=== PATIENT | female | born 1940 | race Caucasian/White ===

== ENCOUNTER 2018-03-23 19:41 | Emergency (ER) | payer MEDICARE, OTHER, SELFPAY ==
[2018-03-23 19:47] VITALS: BP 135/86; PULSE 78; RESP 16; TEMP 36.4; O2SAT 98
--- NOTE | 2018-03-23 22:44 | ED_ITS ---
HPI - Skin/Abscess/Foreign Bdy <SHAN Mercer - Last Filed: 03/23/18 22:45> General Chief complaint: Skin/Abscess/Foreign Body Stated complaint: CUT RT INDEX FINGER Time Seen by Provider: 03/23/18 21:13 Source: patient Mode of arrival: ambulatory Limitations: no limitations History of Present Illness HPI narrative: Patient cut the back of her right index finger on a glass jar. States full mobility. States tetanus updated 3 years ago. Denies numbness or tingling. Has not done anything to the laceration since. States that happened about 30 min prior to arrival to the emergency department. Related Data Allergies Allergy/AdvReac Type Severity Reaction Status Date / Time codeine [CODEINE] Allergy Unknown Unverified 11/30/17 12:32 Iodinated Contrast- Oral and Allergy Unknown Unverified 11/30/17 12:32 IV Dye [IODINATED CONTRAST MEDIA - IV DYE] Penicillins [PENICILLINS] Allergy Unknown Unverified 11/30/17 12:32 Review of Systems <SHAN Mercer - Last Filed: 03/23/18 22:45> Review of Systems GENERAL: Denies chills, fatigue, malaise, fever, sweats. HEENT: Denies sinus pain, ear pain, sore throat, difficulty swallowing, dizziness. RESPIRATORY: Denies dyspnea, cough, wheezing, hemoptysis, sputum. CARDIOVASCULAR: Denies chest pain, palpitations, orthopnea, edema, GASTROINTESTINAL: Denies nausea, vomiting, abdominal pain, diarrhea, constipation, melena. : Denies dysuria, frequency, incontinence, hematuria, urinary retention. MUSCULOSKELETAL: See HPI SKIN: See HPI NEUROLOGIC: Denies weakness, headache, numbness, change in speech, confusion, seizures, incoordination. PSYCHIATRIC: No concerning psychosocial issues. 12 point review of systems is negative except for those stated above Exam <SHAN Mercer - Last Filed: 03/23/18 22:45> Narrative Exam Narrative: GENERAL: This is a well-nourished, well-developed patient, in mild distress. HEAD: Atraumatic. Normocephalic. No temporal or scalp tenderness. EYES: Pupils equal round and reactive. Extraocular motions intact. No scleral icterus. No injection or drainage. ENT: Nose without bleeding, purulent drainage or septal hematoma. Throat without erythema, tonsillar hypertrophy or exudate. Uvula midline. Airway patent. NECK: Trachea midline. No JVD or lymphadenopathy. Supple, nontender, no meningeal signs. CARDIOVASCULAR: Regular rate and rhythm without murmurs, gallops, or rubs. RESPIRATORY: Clear to auscultation. Breath sounds equal bilaterally. No wheezes , rales, or rhonchi. GASTROINTESTINAL: Abdomen soft, non-tender, nondistended. No hepato-splenomegaly , or palpable masses. No guarding. EXTREMITIES: Full range of motion noted right index finger. Capillary refill less than 2 sec right index finger. BACK: Nontender without deformity or crepitance. No flank tenderness. NEURO: AOx3. SKIN: 2 cm linear laceration on dorsal aspect of right index finger. Laceration is linear other than small flap on distal end. No muscle or tendon involvement observed. Bleeding slowly. No obvious foreign bodies. Initial Vital Signs Initial Vital Signs: Vital Signs Temperature 97.6 F 03/23/18 19:47 Pulse Rate 78 03/23/18 19:47 Respiratory Rate 16 03/23/18 19:47 Blood Pressure 135/86 H 03/23/18 19:47 Pulse Oximetry 98 03/23/18 19:47 <Azucena Mcallister DO - Last Filed: 03/24/18 04:24> Initial Vital Signs Initial Vital Signs: Vital Signs Temperature 97.6 F 03/23/18 19:47 Pulse Rate 78 03/23/18 19:47 Respiratory Rate 16 03/23/18 19:47 Blood Pressure 135/86 H 03/23/18 19:47 Pulse Oximetry 98 03/23/18 19:47 Procedures <SHAN Mercer - Last Filed: 03/23/18 22:45> Laceration Repair Laceration 1: Site: hand Side (If applicable): right Size (cm): 2 Description: linear and flap Depth: simple, single layer Local Anesthetic: lidocaine 1% (Digital block right index finger) Amount of anesthesia used (mL): 3 Pre-repair: wound explored, irrigated extensively and deep structures intact Skin layer closed with: nylon Size (cm): 6-0 Number of sutures: 5 Technique: simple, interrupted Course <SHAN Mercer - Last Filed: 03/23/18 22:45> Vital Signs - 8 hr 03/23/18 23:08 Temperature 96.7 F L Pulse Rate 57 L Blood Pressure [Left Arm] 132/84 H Pulse Oximetry 98 <Azucena Mcallister DO - Last Filed: 03/24/18 04:24> Vital Signs - 8 hr 03/23/18 23:08 Temperature 96.7 F L Pulse Rate 57 L Blood Pressure [Left Arm] 132/84 H Pulse Oximetry 98 MDM - Skin/Abscess/Foreign Bdy <JAMIE Mercer-BC - Last Filed: 03/23/18 22:45> MDM Narrative Medical decision making narrative: Laceration closed as in procedure note. Tetanus is up-to-date. Discussed at length monitoring for signs and symptoms of infection. Discussed keeping laceration clean and dry. Discussed follow-up in approximately 7 days for suture removal. Discharge Plan Departure Patient Disposition: Home, Self-Care Clinical Impression: Laceration Discharge Date/Time: 03/23/18 23:19 Interventions: ED Discharge Assessment Last Done: 03/23/18 23:05 Instructions: DI for Laceration Repair -- Finger Activity Restrictions/Additional Instructions: Monitor for signs and symptoms of infection as discussed including pus, extending redness or decreased mobility.. Keep laceration clean and dry. Please do not submerge in dirty water. Follow up in approximately 7 days for suture removal. Referrals: Christine Zeng DO [Primary Care Provider] - <Azucena Mcallister DO - Last Filed: 03/24/18 04:24> Cosign ED Attending Cosphilippeature Attestation: I was immediately available in the department for consultation. Documentation has been reviewed. I agree with assessment and plan.
[2018-03-23 23:08] VITALS: BP 132/84; PULSE 57; TEMP 35.9; O2SAT 98
== END 2018-03-23 23:19 | disposition home or self-care (01) ==
PROVIDERS: Emergency Provider Nurse Practitioner Family; PCP Internal Medicine
DX: S61.411A Laceration without foreign body of right hand, initial encounter (principal); W25.XXXA Contact with sharp glass, initial encounter
CPT/HCPCS: 12001; 99282; 99283

== ENCOUNTER 2018-03-30 14:19 | Emergency (ER) | payer MEDICARE, OTHER, SELFPAY ==
[2018-03-30 14:32] VITALS: BP 102/65; PULSE 68; RESP 15; TEMP 37.2; O2SAT 98
--- NOTE | 2018-03-30 16:01 | ED.GENADULT ---
HPI - General Adult General Chief complaint: Recheck/Abnormal Lab/Rx Stated complaint: CAME TO GET STITCHES REMOVED Time Seen by Provider: 03/30/18 16:00 Source: patient Mode of arrival: ambulatory Limitations: no limitations History of Present Illness HPI narrative: This 77 year old female returns to ED for suture removal. She had index finger sutures placed a week ago. Denies any problems with the wound or any other new concerns today. Related Data Home Medications Medication Instructions Recorded Confirmed cyanocobalamin (vitamin B-12) 1 dose IM Q2W 03/30/18 03/30/18 Allergies Allergy/AdvReac Type Severity Reaction Status Date / Time codeine [CODEINE] Allergy Unknown Verified 03/30/18 14:32 Iodinated Contrast- Oral and Allergy Unknown Verified 03/30/18 14:32 IV Dye [IODINATED CONTRAST MEDIA - IV DYE] Penicillins [PENICILLINS] Allergy Unknown Verified 03/30/18 14:32 PFSH Medical History Peripheral neuropathy (Chronic) Vitamin B deficiency (Chronic) Social History Smoking Status: Never smoker Exam Narrative Exam Narrative: GENERAL: Patient sitting comfortably DERMATOLOGIC: Right pointer finger between MCP and PIP there is a closed wound with sutures clean, dry and intact Initial Vital Signs Initial Vital Signs: Vital Signs Temperature 98.9 F 03/30/18 14:32 Pulse Rate 68 03/30/18 14:32 Respiratory Rate 15 03/30/18 14:32 Blood Pressure 102/65 03/30/18 14:32 Pulse Oximetry 98 03/30/18 14:32 Course Additional Information: Five right pointer finger sutures removed per nursing Vital Signs - 8 hr 03/30/18 14:32 03/30/18 16:10 Temperature 98.9 F 98.0 F Pulse Rate 68 58 L Respiratory Rate 15 14 Blood Pressure 102/65 Blood Pressure [Left Arm] 114/62 Pulse Oximetry 98 96 Discharge Plan Departure Patient Disposition: Home, Self-Care Clinical Impression: Encounter for removal of sutures Discharge Date/Time: 03/30/18 16:23 Interventions: ED Discharge Assessment Last Done: 03/30/18 16:21 Instructions: DI for Suture Removal Prescriptions: No Action cyanocobalamin (vitamin B-12) 1,000 mcg/mL solution 1 dose IM Q2W RF: 0 Referrals: Christine Zeng DO [Primary Care Provider] -
[2018-03-30 16:10] VITALS: BP 114/62; PULSE 58; RESP 14; TEMP 36.7; O2SAT 96
--- NOTE | 2018-03-30 16:20 | PC.NURSE ---
sutures removed, wound edges approximated and without evidence of infection
== END 2018-03-30 16:23 | disposition home or self-care (01) ==
PROVIDERS: Emergency Provider Internal Medicine; PCP Internal Medicine
DX: Z48.02 Encounter for removal of sutures (principal)
CPT/HCPCS: 99282

== ENCOUNTER → 2018-08-29 09:46 | Outpatient (CLI) | payer MEDICARE, OTHER, SELFPAY ==
--- NOTE | 2018-08-29 | DI.CT.S_ITS ---
PROCEDURE: CT UE RT WO CON INDICATIONS: PRIMARY OSTEOARTHRITIS OF RIGHT SHOULDER TECHNIQUE: Noncontrast 1-1.5 mm thick sections acquired from the acromioclavicular joint to the inferior scapula, with coronal and sagittal reformatting. COMPARISON: None. FINDINGS: Image quality: Diagnostic. Bones: No displaced fracture or dislocation is identified involving the osseous structures of the right shoulder. No suspicious osseous lesions are identified. There are severe degenerative changes of the glenohumeral joint with prominent bony remodeling of the humeral head and the adjacent glenoid. Subchondral sclerosis and degenerative cystic change are present. Bony remodeling is noted. Prominent marginal osteophytes are present. There are [id number] degenerative changes of the acromioclavicular joint. The remainder of the image osseous structures are otherwise age-appropriate and unremarkable. Soft tissues: Soft tissues overlying the right shoulder. No significant atrophy is appreciated involving the rotator cuff muscles. No soft tissue masses or drainable fluid collections are evident. No axillary lymphadenopathy is evident. Included portions of the right lung and mediastinum are grossly within normal limits for age. IMPRESSION: 1. Severe degenerative changes of the glenohumeral joint. 2. Moderate to severe degenerative changes of the acromioclavicular joint. 3. No acute fractures. Dictated by: Alexandru Jones M.D. on 08/29/2018 at 10:03 Approved by: Alexandru Jones M.D. on 08/29/2018 at 10:53
== END ==
PROVIDERS: PCP Internal Medicine; Visit Provider Orthopaedic Surgery
DX: M19.011 Primary osteoarthritis, right shoulder (principal)
CPT/HCPCS: 73200

== ENCOUNTER → 2019-03-08 14:30 | Outpatient (CLI) | payer MEDICARE, OTHER, SELFPAY | PROVIDERS: PCP Internal Medicine; Visit Provider Physician Assistant | DX: N39.0 Urinary tract infection, site not specified (principal); R31.9 Hematuria, unspecified | CPT/HCPCS: 87077; 87086; 87186 ==

== ENCOUNTER 2019-04-30 11:34 | Emergency (ER) | payer MEDICARE, OTHER, SELFPAY ==
[2019-04-30 11:35] VITALS: BP 140/73; PULSE 58; RESP 14; TEMP 36.4; O2SAT 98
[2019-04-30 12:00] VITALS: BP 150/69; PULSE 52; RESP 11; O2SAT 97
--- NOTE | 2019-04-30 12:02 | ED_ITS ---
HPI - Syncope General Chief Complaint: Syncope Stated Complaint: fainting/n&v x3 days Time Seen by Provider: 04/30/19 11:58 Source: patient Mode of arrival: ambulatory Limitations: no limitations History of Present Illness HPI narrative: Patient is a 78-year-old female who presents at the request of the multiple people after syncopal episode 3 days ago. She says she was getting up and out of bed to go use the restroom at around 5:30 a.m. in the morning. She felt a little lightheaded she says she did not quite feel well she says she should have sat down at that point however she decided to walk to the kitchen and get a drink of water at which point she fell backwards and landed on her sacrum. She denies hitting her head no LOC. She says she did not feel well for the rest of that morning time awaiting bed and took it easy. She has had no recurrent episodes of syncope. She has been feeling okay since then. She denies any chest pain heart palpitations nausea vomiting shortness of breath abdominal pain. She is eating and drinking normally. She spoke with her PCP today and her physical therapist who both recommended that she come to the ER for further evaluation. MD complaint: felt faint Related Data Home Medications Medication Instructions Recorded Confirmed No Known Home Medications 04/30/19 04/30/19 Allergies Allergy/AdvReac Type Severity Reaction Status Date / Time Iodinated Contrast- Oral and Allergy Severe Anaphylaxis Verified 04/30/19 11:49 IV Dye [IODINATED CONTRAST MEDIA - IV DYE] milk Allergy Mild ear Verified 04/30/19 11:49 infection, hard mucus build up codeine [CODEINE] Allergy Unknown Verified 04/30/19 11:49 Penicillins [PENICILLINS] Allergy Unknown Verified 04/30/19 11:49 Review of Systems Review of Systems ROS Unobtainable: All systems reviewed & are unremarkable except as noted in HPI and below Constitutional Constitutional: Denies chills, Denies fever(s), Denies lethargy and Denies weakness Eyes Eyes: Denies change in vision, Denies eye discharge, Denies irritation and Denies loss of vision ENT Ears, Nose, Mouth, and Throat: Denies change in voice, Denies neck pain and Denies sore throat Cardiovascular Cardiovascular: Denies chest pain, Reports syncope, Denies dyspnea, Denies dyspnea on exertion and Denies orthopnea Respiratory Respiratory: Denies dyspnea and Denies dyspnea on exertion Gastrointestinal Gastrointestinal: Denies abdominal pain, Denies change in bowel habits, Denies diarrhea, Denies nausea and Denies vomiting Genitourinary Genitourinary: Denies hematuria, Denies flank pain, Denies urinary incontinence and Denies urinary urgency Musculoskeletal Musculoskeletal: Denies neck pain Integumentary/Breasts Skin/Breast: Denies pruritus, Denies erythema, Denies rash and Denies wounds Neurologic Neurologic: Denies confusion, Reports syncope, Denies loss of vision and Denies weakness Psychiatric Psychiatric: Denies anxiety, Denies confusion, Denies depression, Denies homicidal ideation and Denies suicidal ideation [facility] Medical History Peripheral neuropathy (Chronic) Vitamin B deficiency (Chronic) Social History Smoking Status: Former smoker Social History Smoking Status: Former smoker Exam Initial Vital Signs Initial Vital Signs: Vital Signs Temperature 97.6 F 04/30/19 11:35 Pulse Rate 58 L 04/30/19 11:35 Respiratory Rate 14 04/30/19 11:35 Blood Pressure 140/73 04/30/19 11:35 Pulse Oximetry 98 04/30/19 11:35 GENERAL:Well-appearing, well-nourished and in no acute distress. HEENT: Head atraumatic,EOMI, pupils reactive, face symmetric NECK: No vertebral tenderness no step-offs a full range of motion CARDIOVASCULAR: Regular rate and rhythm without murmurs, rubs or gallops. RESPIRATORY: Breath sounds equal bilaterally, no wheezes rales or rhonchi. ABDOMEN: Soft, nontender. Normoactive bowel sounds all 4 quadrants. No guarding or rebound. EXTREMITIES: Normal range of motion, no clubbing or edema. Neurovascularly intact NEUROLOGICAL: Alert and oriented x4.Normal gait and speech. Cranial nerves II through XII grossly intact. good [id number], good [id number], strength equal bilaterally, no dysarthria or aphasia, sensation in tact to soft touch bilaterally, no visual changes, no facial droopSKIN: Warm, dry, no laceration, no petechiae, no rashes or lesions. Scores NIH Stroke Scale Level of Conciousness: Alert, keenly responsive Ask month/age: Answers both questions correctly. Open/close eyes, close hand: Performs both tasks correctly Best gaze horizontal: Normal Visual elizalde: No visual loss Facial palsy: Normal symetrical movement Left arm drift: No drift for full 10 sec Right arm drift: No drift for full 10 sec Left leg drift: No drift for full 10 sec Right leg drift: No drift for full 10 sec Limb ataxia: Absent Sensory on face/arms/legs: Normal, no sensory loss Best language: No aphasia, normal Dysarthria: Normal Extinction or inattention: No abnormality Total NIH Stroke scale score: 0 Course Orders Ordered: ED Orders 04/30/19 11:41 EKG-12 Lead Routine 04/30/19 12:01 Complete Blood Count AUTO DIFF Stat Comprehensive Metabolic Panel Stat Lipase Stat Magnesium Stat Partial Thromboplastin Time Stat Prothrombin Time INR Stat Troponin & CK Cardiac Panel Stat Vital Signs Vital signs: Vital Signs - 8 hr 04/30/19 11:35 04/30/19 12:00 04/30/19 12:12 Temperature 97.6 F 97.7 F Pulse Rate 58 L 52 L 50 L Respiratory Rate 14 11 L 16 Blood Pressure 140/73 Blood Pressure [Left Arm] 150/69 H 190/56 H Pulse Oximetry 98 97 97 04/30/19 12:30 04/30/19 13:00 Temperature Pulse Rate 54 L 55 L Respiratory Rate 18 17 Blood Pressure Blood Pressure [Left Arm] 132/68 127/66 Pulse Oximetry 95 94 MDM - Syncope Lab Data Attestation: I reviewed the patient's lab results. Result diagrams: 04/30/19 12:01 04/30/19 12:01 Labs: Lab Results 04/30/19 04/30/19 04/30/19 Range/Units 12:01 12:01 12:01 WBC 5.6 (4.5-11.0) X10^3/uL RBC 4.31 (4.0-5.2) X10^6/uL Hgb 13.9 (12.0-16.0) g/dL Hct 40.5 (36-46) % MCV 94.1 (80-100) fL MCH 32.3 (26-34) PG MCHC 34.3 (30-36) % RDW 12.8 (11.6-14.8) % Plt Count 186 (150-400) X10^3/uL Neut % (Auto) 57.6 (50-75) % Lymph % (Auto) 27.3 (25-40) % Pacific % (Auto) 9.7 (3-14) % Eos % (Auto) 4.5 H (2-4) % Baso % (Auto) 0.9 (0-2) % Neut # (Auto) 3200 (4163-5593) /uL Lymph # (Auto) 1500 (6410-2597) /uL Pacific # (Auto) 500 (0-900) /uL Eos # (Auto) 300 (0-450) /uL Baso # (Auto) 100 (0-100) /uL PT 12.2 (10.1-12.7) SECONDS INR 1.1 (0.9-1.3) APTT 32 (26.4-36.2) SECONDS Sodium 137 (137-145) mmol/L Potassium 3.9 (3.4-5.1) mmol/L Chloride 102 (98-107) mmol/L Carbon Dioxide 29 (22-32) mmol/L BUN 11 (7-17) mg/dL Creatinine 0.50 L (0.52-1.04) mg/dL Estimated GFR > 60.0 (>60) mL/min BUN/Creatinine Ratio 22.0 (6-22) Glucose 90 (80-110) mg/dL Calcium 9.7 (8.4-10.2) mg/dL Magnesium 2.2 (1.6-2.3) mg/dL Total Bilirubin 0.4 (0.2-1.3) mg/dL AST 32 (14-36) IU/L ALT 19 (9-52) IU/L Alkaline Phosphatase 78 (38-126) U/L Total Creatine Kinase 172 H (30-135) U/L CK-MB (CK-2) 3.85 H (<2.37) ng/mL CK-MB (CK-2) Rel Index 2.2 (1.5-5.0) % Troponin I < 0.012 (0.01-0.034) ng/mL Total Protein 7.8 (6.3-8.2) g/dL Albumin 4.4 (3.5-5.0) g/dL Globulin 3.4 (1.7-4.1) g/dL Albumin/Globulin Ratio 1.3 (1.0-2.8) Lipase 106 (23-300) U/L ECG Data Attestation: I personally reviewed and interpreted this ECG as follows: Prior ECG tracings: not available for review Interpretation: Normal sinus rhythm rate 54 p.r. interval [address] changes QTC 412 MDM Narrative Medical decision making narrative: Patient has no focal deficits she had vasovagal episode few days ago no recurrent episodes. Discussed with her that she may need Holter monitor at this time she feels ready and able to go home. She refuses chest x-ray she has no respiratory symptoms. She has no focal deficits to suggest that she needs a head CT. Discharge Plan Departure Patient Disposition: Home Clinical Impression: Vasovagal episode Discharge Date/Time: 04/30/19 13:25 Instructions: DI for Syncope in Adults (Fainting) Activity Restrictions/Additional Instructions: *You have been diagnosed with syncopal episode *What to do: Blood work is reassuring. You may require Holter monitor which monitor her heart rhythm this is something or primary care doctor can set up. *Continue to take medications as directed *Follow up with your primary care provider in 2-3 days *Return to ER if you should have recurrent episode of passing out, chest pain heart palpitations or any new, worsening or concerning symptoms Prescriptions: No Action No Known Home Medications RF: 0 Referrals: Christine Zeng DO [Primary Care Provider] -
[2019-04-30 12:09] LABS: Add Manual Diff / Slide Review NO; Basophils Absolute Auto 100 /uL (0-100); Basophils Percent Auto 0.9 % (0-2); Eosinophils Absolute Auto 300 /uL (0-450); Eosinophils Percent Auto 4.5 % (2-4); Hematocrit 40.5 % (36-46); Hemoglobin 13.9 g/dL (12.0-16.0); Lymphocytes Absolute Auto 1500 /uL (1100-4500); Lymphocytes Percent Auto 27.3 % (25-40); Mean Corpuscular HGB Conc 34.3 % (30-36); Mean Corpuscular Hemoglobin 32.3 PG (26-34); Mean Corpuscular Volume 94.1 fL (80-100); Monocytes Absolute Auto 500 /uL (0-900); Monocytes Percent Auto 9.7 % (3-14); Neutrophils Absolute Auto 3200 /uL (1500-7000); Neutrophils Percent Auto 57.6 % (50-75); Platelet Count 186 X10^3/uL (150-400); Red Blood Cell Count 4.31 X10^6/uL (4.0-5.2); Red Cell Distribution Width 12.8 % (11.6-14.8); White Blood Cell Count 5.6 X10^3/uL (4.5-11.0)
[2019-04-30 12:12] VITALS: BP 190/56; PULSE 50; RESP 16; TEMP 36.5; O2SAT 97
[2019-04-30 12:16] LABS: INR 1.1 (0.9-1.3); Prothrombin Time 12.2 SECONDS (10.1-12.7)
[2019-04-30 12:19] LABS: PTT Partial Thromboplastin Tim 32 SECONDS (26.4-36.2)
[2019-04-30 12:21] LABS: Alanine Aminotransferase 19 IU/L (9-52); Albumin 4.4 g/dL (3.5-5.0); Albumin Globulin Ratio 1.3 (1.0-2.8); Alkaline Phosphatase 78 U/L (38-126); Aspartate Aminotransferase 32 IU/L (14-36); Bilirubin Total 0.4 mg/dL (0.2-1.3); Blood Urea Nitrogen 11 mg/dL (7-17); Calcium 9.7 mg/dL (8.4-10.2); Carbon Dioxide 29 mmol/L (22-32); Chloride 102 mmol/L (98-107); Creatine Kinase 172 U/L (30-135); Estimated Glomerular Filt Rate > 60.0 mL/min (>60); Globulin 3.4 g/dL (1.7-4.1); Glucose 90 mg/dL (80-110); Lipase 106 U/L (23-300); Magnesium 2.2 mg/dL (1.6-2.3); Potassium 3.9 mmol/L (3.4-5.1); Sodium 137 mmol/L (137-145); Total Protein 7.8 g/dL (6.3-8.2)
[2019-04-30 12:30] VITALS: BP 132/68; PULSE 54; RESP 18; O2SAT 95
[2019-04-30 12:33] LABS: Troponin I < 0.012 ng/mL (0.01-0.034)
[2019-04-30 12:36] LABS: CKMB % Relative Index 2.2 % (1.5-5.0); Creatine Kinase MB 3.85 ng/mL (<2.37); HEMOLYSIS 16 (0-50)
[2019-04-30 13:00] VITALS: BP 127/66; PULSE 55; RESP 17; O2SAT 94
== END 2019-04-30 13:25 | disposition home or self-care (01) ==
PROVIDERS: Emergency Provider Emergency Medicine; PCP Internal Medicine
DX: R55 Syncope and collapse (principal)
CPT/HCPCS: 36415; 36591; 80053; 82550; 82553; 83690; 83735; 84484; 85025; 85610; 85730; 93005; 93010; 93041; 99284

== ENCOUNTER → 2019-08-01 18:21 | Outpatient (CLI) | payer MEDICARE, OTHER, SELFPAY ==
--- NOTE | 2019-08-01 18:23 | DI.RAD.S_ITS ---
PROCEDURE: XR CHEST 2V INDICATIONS: failed abx for resp inf. r/o ongoing pneumonia TECHNIQUE: 2 views of the chest were acquired. COMPARISON: [facility], , CHEST 1 VIEW, 09/02/2017, 10:25. FINDINGS: Surgical changes and devices: Right shoulder arthroplasty Lungs and pleura: Lungs are clear. No pleural effusions or pneumothorax. Mediastinum: Mediastinal contours are normal. Heart size is normal. Bones and chest wall: No suspicious bony abnormalities. Soft tissues appear unremarkable. IMPRESSION: No acute disease. Dictated by: Oliver Owen M.D. on 08/01/2019 at 19:15 Approved by: Oliver Owen M.D. on 08/01/2019 at 19:16
== END ==
PROVIDERS: PCP Internal Medicine; Visit Provider Physician Assistant
DX: J40 Bronchitis, not specified as acute or chronic (principal)
CPT/HCPCS: 71046

== ENCOUNTER → 2019-08-09 16:55 | Outpatient (CLI) | payer MEDICARE, OTHER, SELFPAY | PROVIDERS: PCP Internal Medicine; Visit Provider Nurse Practitioner | DX: N30.01 Acute cystitis with hematuria (principal) | CPT/HCPCS: 87077; 87086; 87186 ==

== ENCOUNTER 2019-11-02 13:37 | Emergency (ER) | payer MEDICARE, OTHER, SELFPAY ==
[2019-11-02 13:47] VITALS: BP 130/69; PULSE 80; RESP 18; TEMP 36.6; O2SAT 100
--- NOTE | 2019-11-02 15:34 | ED_ITS ---
HPI - URI/Sore Throat <ARABELLA Romeo - Last Filed: 11/02/19 23:37> General Chief Complaint: Upper Respiratory Symptoms Stated Complaint: sore throat possible cold Time Seen by Provider: 11/02/19 14:42 Source: patient Mode of arrival: Ambulatory Limitations: no limitations History of Present Illness HPI Narrative: This is a pleasant 79-year-old female, formal smoker, who presents to ED with chief complain of sore throat and cough which started at 11:00 a.m. today. Patient also reports occasional left ear discomfort. Patient thinks she may have allergies to environment and has postnasal drips as well. Patient denies fever, chills, nausea or vomiting. He denies recent foreign travel. Patient returned from [place] by driving p.o. the in 10/22/2019 and states was taking visual in precautions with hand hygiene. Patient denies any existing previous medical conditions. Related Data Previous Rx's Medication Instructions Recorded fluconazole 150 mg tablet 150 mg PO ONCE #1 tab 08/09/19 fluticasone propionate 2 spray NASAL DAILY PRN #9.9 ml 11/02/19 Allergies Allergy/AdvReac Type Severity Reaction Status Date / Time Iodinated Contrast Media Allergy Severe Anaphylaxis Verified 08/09/19 14:18 [IODINATED CONTRAST MEDIA - IV DYE] milk Allergy Mild ear Verified 08/09/19 14:18 infection, hard mucus build up codeine [CODEINE] Allergy Unknown Verified 08/09/19 14:18 Penicillins [PENICILLINS] Allergy Unknown Verified 08/09/19 14:18 Review of Systems <ARABELLA Romeo - Last Filed: 11/02/19 23:37> Review of Systems Narrative: General: Denies fever, chills, fatigue, malaise, sweats. HEENT: Denies sinus pain, (+) left ear pain, (+) sore throat, difficulty swallowing, dizziness. Respiratory: Denies dyspnea, (+) non- productive cough, wheezing, hemoptysis, sputum. Cardiovascular: Denies chest pain, palpitations, orthopnea, edema. Gastrointestinal: Denies nausea, vomiting, abdominal pain, diarrhea, constipation, melena. : Denies dysuria, frequency, incontinence, hematuria, urinary retention. Musculoskeletal: Denies weakness, joint pain or bony pain. Skin: Denies rash, skin lesions, or other. Neurologic: Denies weakness, headache, numbness, change in speech, confusion, seizures, incoordination. Psychiatric: No concerning psychosocial issues. 12-point review of systems is negative except for those stated above. Patient History <ARABELLA Romeo - Last Filed: 11/02/19 23:37> Medical History Peripheral neuropathy (Chronic) Vitamin B deficiency (Chronic) Social History Smoking Status: Former smoker Smoking Status: Former smoker alcohol intake frequency: a few times a week Substance Use Type: does not use Exam <ARABELLA Romeo - Last Filed: 11/02/19 23:37> Narrative Exam Narrative: GEN: Alert, oriented x 3, well appearing and nourished, and in no acute distress. Head: Normal cephalic, atraumatic. No scalp or temporal tenderness, palpable mass or rash. EYES: Pupils are equal, round, and reactive to light and accommodation. Extraocular muscles are intact bilaterally. There is no subconjunctival hemorrhage, exudate and sclera non-icteric. ENT: Bilateral auditory canals and tympanic membranes clear. Hearing grossly intact. Nose without bleeding, purulent discharge or deviation. Facial sinuses nontender to palpate. Mucous membrane moist, no mucosal lesion. Throat with erythema with postnasal drips. No tonsillar hypertrophy or exudate. Uvula in midline, airway patent. Neck: Trachea in midline. No JVD, non-tender without lymphadenopathy. No masses or thyroid megaly. Supple, non-tender and no meningeal signs. CARDIAC: Normal regular rate and rhythm without murmurs, gallops, or rubs. No chest wall tenderness. No peripheral edema, cyanosis or pallor. Capillary refill is less than 2 seconds. RESPIRATORY: Lungs are clear to auscultate bilaterally. No cough, wheezes, rales, or rhonchi. No stridor, respiratory distress, increase work of breathing, or accessary muscle used. ABD: Abdomen soft, nontender and non-distended. No guarding or rebound tenderness to palpate. Bowel sounds are normal in all 4 quadrants. There is no palpable masses or organomegaly. EXT: Full painless ROM of all extremities with no loss of sensation, strength, effusion or edema. SKIN: Warm, dry, normal color for patient. No erythema, lesions or rash over visible areas. BACK: Nontender without deformity or crepitance. No flank tenderness. NEUROLOGICAL: Alert and oriented to place, time and person. Sensation and motor function intact bilaterally. No facial droops, dysphasia. PSYCHIATRIC: Good judgement and reason, without hallucinations, abnormal affect or abnormal behaviors during the examination. Initial Vital Signs Initial Vital Signs: Vital Signs Temperature 97.9 F 11/02/19 13:47 Pulse Rate 80 11/02/19 13:47 Respiratory Rate 18 11/02/19 13:47 Blood Pressure 130/69 11/02/19 13:47 Pulse Oximetry 100 11/02/19 13:47 <Danielito Mckeon MD - Last Filed: 11/09/19 17:58> Initial Vital Signs Initial Vital Signs: Vital Signs Temperature 97.9 F 11/02/19 13:47 Pulse Rate 80 11/02/19 13:47 Respiratory Rate 18 11/02/19 13:47 Blood Pressure 130/69 11/02/19 13:47 Pulse Oximetry 100 11/02/19 13:47 Scores <ARABELLA Romeo - Last Filed: 11/02/19 23:37> GCS Marta coma scale eye opening: Spontaneous [place] coma scale verbal response: Orientated Marta coma scale motor response: Obey commands [place] coma scale total score: 15 Course <ARABELLA Romeo - Last Filed: 11/02/19 23:37> Vital Signs Vital signs: Vital Signs - 8 hr 11/02/19 13:47 Temperature 97.9 F Pulse Rate 80 Respiratory Rate 18 Blood Pressure 130/69 Pulse Oximetry 100 <Danielito Mckeon MD - Last Filed: 11/09/19 17:58> Vital Signs Vital signs: Vital Signs - 8 hr 11/02/19 13:47 Temperature 97.9 F Pulse Rate 80 Respiratory Rate 18 Blood Pressure 130/69 Pulse Oximetry 100 MDM - URI/Sore Throat <ARABELLA Romeo - Last Filed: 11/02/19 23:37> Differential Diagnosis Differential diagnosis: Likely upper respiratory infection, viral infection and pharyngitis Medical Records Attestation: I reviewed the patient's medical records. Lab Data Attestation: I reviewed the patient's lab results. Labs: Point of Care Testing Rapid Strep A Negative MDM Narrative Medical decision making narrative: Patient presents to ED with sore throat and cough since 11:00 a.m. today. Patient does not endorses constitutional symptoms, short of breath, chest pain, foreign travel, or ill exposures. Considered influenza but Patient is afebrile with stable vital signs. Lung sounds are clear to auscultate in all lobes and denies other flu-like symptoms. Physical exam appreciated postnasal drips. Strep throat swab was negative. Patient discharged to home with Flonase for nasal congestion and postnasal drips since this could be related to environmental allergies. Return precautions were discussed with the patient and patient verbalized understanding and in agreement with treatment plan. <Danielito Mckeon MD - Last Filed: 11/09/19 17:58> Lab Data Labs: Point of Care Testing Rapid Strep A Negative Discharge Plan Departure Patient Disposition: Home Clinical Impression: Post-nasal drip, Upper respiratory disease Discharge Date/Time: 11/02/19 16:31 Instructions: Allergic Rhinitis, DI for Viral Upper Respiratory Infection -- Adult Activity Restrictions/Additional Instructions: You have been diagnosed with [upper respiratory infection or environmental allergies with postnasal drips and cough. You do not have fever or short of breath. Strep throat test was negative.]. What to do: *Take your medications as directed. Please use Flonase nasal steroids for ear pressure, postnasal drips and congestion. This medication has been transmitted to [facility], [place]. *Follow up with your primary care provider in 2-3 days, call for an appointment. Let them know you were seen in the ED and that we asked you to be seen in follow up. *Return to ED if you have any new, worsening, or concerning symptoms, such as [chest pain, breathing difficulty, fever, unable to tolerate fluids, or any acute concerns.]. Prescriptions: New fluticasone propionate 50 mcg/actuation spray,suspension 2 spray NASAL DAILY PRN (Reason: nasal congestion, post nasal drips, ear pressure) Qty: 9.9 RF: 0 No Action fluconazole [Diflucan] 150 mg tablet 150 mg PO ONCE Qty: 1 RF: 0 Referrals: Christine Zeng DO [Primary Care Provider] -
== END 2019-11-02 16:31 | disposition home or self-care (01) ==
PROVIDERS: Emergency Provider Nurse Practitioner Family; PCP Internal Medicine
DX: J06.9 Acute upper respiratory infection, unspecified (principal); R09.82 Postnasal drip
CPT/HCPCS: 87880; 99281; 99282

== ENCOUNTER → 2020-02-20 11:05 | Outpatient (CLI) | payer MEDICARE, OTHER, SELFPAY | PROVIDERS: PCP Internal Medicine; Referring Provider Otolaryngology; Visit Provider Otolaryngology | DX: R05 Cough (principal); R09.82 Postnasal drip; Z53.20 Procedure and treatment not carried out because of patient's decision for unspecified reasons ==

== ENCOUNTER → 2020-07-30 09:31 | Outpatient (CLI) | payer MEDICARE, OTHER, SELFPAY | PROVIDERS: PCP Internal Medicine; Visit Provider Physician Assistant | DX: N34.3 Urethral syndrome, unspecified (principal) | CPT/HCPCS: 87077; 87086; 87186 ==

== ENCOUNTER 2020-08-21 23:13 | Emergency (ER) | payer MEDICARE, OTHER, SELFPAY ==
[2020-08-21 23:35] VITALS: BP 168/76; PULSE 72; RESP 15; TEMP 37.2; O2SAT 99; BMI 23.8
--- NOTE | 2020-08-21 23:56 | ED.EXTPRO ---
HPI - Extremity Problem General Chief complaint: Extremity Problem,Nontraumatic Stated complaint: Hip replacement in May. Suddenly swollen today Time Seen by Provider: 08/21/20 23:41 Source: patient Mode of arrival: Ambulatory Limitations: no limitations History of Present Illness HPI Narrative: This is an 79-year-old female who comes in with complaint of swelling in her left lower extremity. She noticed some swelling in her ankle, or foot and mildly up into the calf. She states she has not had issues in the past. She states it has improved somewhat this evening but she still notes it. She does not appreciate in her right lower extremity. She noticed possibly a small spot of redness but she can not it at this time. No fevers, no chest pain or shortness of breath, no nausea or vomiting. No syncope or lightheadedness. No GI or urinary symptoms. Patient's has chronic neuropathy in both lower extremities, but this is usually tingling and numbness. She does not have any pain. She does not have any weakness. She is not on any anticoagulants. She does not take any medications regularly. She had a hip replacement in May, she states she were compression stockings but was never anticoagulated in any form. Related Data Previous Rx's Medication Instructions Recorded fluconazole 150 mg tablet 150 mg PO ONCE #1 tab 08/09/19 fluticasone propionate 2 spray NASAL DAILY PRN #9.9 ml 11/02/19 Allergies Allergy/AdvReac Type Severity Reaction Status Date / Time Iodinated Contrast Media Allergy Severe Anaphylaxis Verified 07/30/20 09:29 [IODINATED CONTRAST MEDIA - IV DYE] milk Allergy Mild ear Verified 07/30/20 09:29 infection, hard mucus build up codeine [CODEINE] Allergy Unknown Verified 07/30/20 09:29 Penicillins [PENICILLINS] Allergy Unknown Verified 07/30/20 09:29 Review of Systems Review of Systems ROS Unobtainable: All systems reviewed & are unremarkable except as noted in HPI and below Patient History Medical History Peripheral neuropathy Urinary tract infection Vitamin B deficiency Social History Smoking Status: Former smoker Smoking Status: Former smoker alcohol intake frequency: a few times a week Substance Use Type: does not use Exam Narrative Exam Narrative: GENERAL: Alert and oriented x three, well-nourished, well-appearing female in mild distress. HEENT: Head normocephalic, atraumatic, EOMI, pupils reactive, face symmetric, moist mucous membranes NECK: Supple, full range of motion CARDIOVASCULAR: Regular rate and rhythm without murmurs, rubs or gallops. RESPIRATORY: Breath sounds equal bilaterally, no wheezes rales or rhonchi. ABDOMEN: Soft, nontender. Normoactive bowel sounds all 4 quadrants. No guarding or rebound, rigidity, no mass EXTREMITIES: Normal range of motion, no clubbing, mild pretibial and pedal edema left compared to right. Nonpitting. Patient does not have any bony tenderness. No calf tenderness. No warmth or erythema, pallor or cyanosis. 2+ pulse bilateral lower extremities. Neurovascularly intact. Patient has sensation to light touch. 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 NEUROLOGICAL: Cranial nerves II through XII grossly intact. Moving all extremities SKIN: Warm, dry, no petechiae, no rashes or lesions. Initial Vital Signs Initial Vital Signs: Vital Signs Temperature 98.9 F 08/21/20 23:35 Pulse Rate 72 08/21/20 23:35 Respiratory Rate 15 08/21/20 23:35 Blood Pressure 168/76 H 08/21/20 23:35 Pulse Oximetry 99 08/21/20 23:35 Scores Wells' Criteria for DVT Active Cancer (Treatment within 6 months): No Bedridden recently >3 days or major surgery within 4 weeks: No Calf Swelling >3cm compared to other leg: No Collateral (nonvericose) superficial veins present: No Entire leg swollen: No Localized tenderness along the deep vein system: No Pitting edema, confined to symtomatic leg: Yes Paralysis, paresis, or recent plaster immobilization of ext: No Previously documented DVT: No Alternative dx to DVT as likely or more likely: No Wells' criteria for DVT: 1 Course Orders Ordered: ED Orders 08/21/20 23:58 Basic Metabolic Panel Stat Complete Blood Count AUTO DIFF Stat Partial Thromboplastin Time Stat Prothrombin Time INR Stat 08/22/20 00:22 US periph venous low extrem lt Stat Vital Signs Vital signs: Vital Signs - 8 hr 08/21/20 23:35 08/22/20 01:43 Temperature 98.9 F Pulse Rate 72 72 Respiratory Rate 15 15 Blood Pressure 168/76 H 127/59 L Pulse Oximetry 99 99 MDM - Extremity (Nontraumatic) Lab Data Result diagrams: 08/22/20 00:41 08/22/20 00:41 Labs: Lab Results 08/22/20 08/22/20 08/22/20 Range/Units 00:41 00:41 00:41 WBC 5.9 (4.5-11.0) X10^3/uL RBC 4.16 (4.0-5.2) X10^6/uL Hgb 13.1 (12.0-16.0) g/dL Hct 38.9 (36-46) % MCV 93.6 (80-100) fL MCH 31.4 (26-34) PG MCHC 33.5 (30-36) % RDW 12.7 (11.6-14.8) % Plt Count 196 (150-400) X10^3/uL Neut % (Auto) 47.3 L (50-75) % Lymph % (Auto) 35.9 (25-40) % [place] % (Auto) 11.5 (3-14) % Eos % (Auto) 4.3 H (2-4) % Baso % (Auto) 1.0 (0-2) % Neut # (Auto) 2800 (6004-6889) /uL Lymph # (Auto) 2100 (6910-0328) /uL [place] # (Auto) 700 (0-900) /uL Eos # (Auto) 300 (0-450) /uL Baso # (Auto) 100 (0-100) /uL PT 12.5 (10.1-12.7) SECONDS INR 1.1 (0.9-1.3) APTT 32 (26.4-36.2) SECONDS Sodium 138 (137-145) mmol/L Potassium 3.9 (3.4-5.1) mmol/L Chloride 107 (98-107) mmol/L Carbon Dioxide 27 (22-32) mmol/L BUN 15 (7-17) mg/dL Creatinine 0.61 (0.52-1.04) mg/dL Estimated GFR > 60.0 (>60) mL/min BUN/Creatinine Ratio 24.6 H (6-22) Glucose 101 (80-110) mg/dL Calcium 9.2 (8.4-10.2) mg/dL Imaging Data US - DVT: Radiologist's Impression: No evidence of DVT in the left lower extremity. MDM Narrative Medical decision making narrative: In her left lower extremity. Patient's some mild pretibial pedal swelling. She is on any medications that would cause this. She did have a hip surgery in May and was on compression stockings but was not anticoagulated otherwise. DVT was ordered and ultrasound is negative. Patient does not have any major lab abnormalities, on physical exam is not suspicious for infection or other skin changes at this time. Plan for watchful waiting. Discharge Plan Departure Patient Disposition: Home Clinical Impression: Left leg swelling Instructions: DI for Peripheral Edema-Unilateral Activity Restrictions/Additional Instructions: Follow-up with your physician in the next week if you are continuing to have symptoms. Call for an appointment on Tuesday. Your imaging is negative for DVT today. Your labs do not show major abnormalities. Elevate your legs while at home or resting, you may wear compression stockings if you find this helpful either in the form of a compression sock or hose. Return to the ER for fevers, rapidly worsening swelling, new pain, loss of sensation, weakness, pallor, cyanosis, redness or other signs of infection Prescriptions: No Action fluconazole [Diflucan] 150 mg tablet 150 mg PO ONCE Qty: 1 RF: 0 fluticasone propionate 50 mcg/actuation spray,suspension 2 spray NASAL DAILY PRN (Reason: nasal congestion, post nasal drips, ear pressure) Qty: 9.9 RF: 0 Referrals: Christine Zeng DO [Primary Care Provider] -
--- NOTE | 2020-08-22 00:22 | DI.US.S_ITS ---
PROCEDURE: US PERIPH VENOUS LOW EXTREM LT INDICATIONS: SWELLING LEFT LEG S/P HIP SURGERY TECHNIQUE: Real-time imaging, as well as color and pulse Doppler interrogation, were performed of the lower extremity deep veins from the inguinal ligament to the popliteal fossa. COMPARISON: None. FINDINGS: The common femoral, femoral and popliteal veins are normally compressible, and free of intraluminal thrombus. Color and pulse Doppler demonstrate normal phasic intraluminal flow. There is normal augmentation response to distal compression maneuver. IMPRESSION: Negative for deep venous thrombosis. Note: No significant discrepancy from the preliminary report. Dictated by: Heriberto Murphy M.D. on 08/22/2020 at 8:06 Approved by: Heriberto Murphy M.D. on 08/22/2020 at 8:06
[2020-08-22 00:54] LABS: Add Manual Diff / Slide Review NO; Basophils Absolute Auto 100 /uL (0-100); Eosinophils Absolute Auto 300 /uL (0-450); Eosinophils Percent Auto 4.3 % (2-4); Hematocrit 38.9 % (36-46); Hemoglobin 13.1 g/dL (12.0-16.0); Lymphocytes Absolute Auto 2100 /uL (1100-4500); Lymphocytes Percent Auto 35.9 % (25-40); Mean Corpuscular HGB Conc 33.5 % (30-36); Mean Corpuscular Hemoglobin 31.4 PG (26-34); Mean Corpuscular Volume 93.6 fL (80-100); Monocytes Absolute Auto 700 /uL (0-900); Monocytes Percent Auto 11.5 % (3-14); Neutrophils Absolute Auto 2800 /uL (1500-7000); Neutrophils Percent Auto 47.3 % (50-75); Platelet Count 196 X10^3/uL (150-400); Red Blood Cell Count 4.16 X10^6/uL (4.0-5.2); Red Cell Distribution Width 12.7 % (11.6-14.8); White Blood Cell Count 5.9 X10^3/uL (4.5-11.0)
[2020-08-22 01:00] LABS: INR 1.1 (0.9-1.3); Prothrombin Time 12.5 SECONDS (10.1-12.7)
[2020-08-22 01:03] LABS: BUN Creatinine Ratio 24.6 (6-22); Blood Urea Nitrogen 15 mg/dL (7-17); Calcium 9.2 mg/dL (8.4-10.2); Carbon Dioxide 27 mmol/L (22-32); Chloride 107 mmol/L (98-107); Estimated Glomerular Filt Rate > 60.0 mL/min (>60); Glucose 101 mg/dL (80-110); HEMOLYSIS < 15 (0-50); PTT Partial Thromboplastin Tim 32 SECONDS (26.4-36.2); Potassium 3.9 mmol/L (3.4-5.1); Sodium 138 mmol/L (137-145)
[2020-08-22 01:43] VITALS: BP 127/59; PULSE 72; RESP 15; O2SAT 99
== END 2020-08-22 01:46 | disposition home or self-care (01) ==
PROVIDERS: Emergency Provider Emergency Medicine; PCP Internal Medicine
DX: R22.42 Localized swelling, mass and lump, left lower limb (principal)
CPT/HCPCS: 36415; 80048; 85025; 85610; 85730; 93971; 99283; 99284

== ENCOUNTER → 2021-03-10 18:27 | Outpatient (CLI) | payer MEDICARE, OTHER, SELFPAY ==
[2021-03-10 18:53] LABS: COVID19 -Nasal RAPID Negative (Negative)
== END ==
PROVIDERS: PCP Internal Medicine; Visit Provider Physician Assistant
DX: Z20.822 Contact with and (suspected) exposure to COVID-19 (principal)
CPT/HCPCS: 87635

== ENCOUNTER 2021-05-25 19:27 | Emergency (ER) | payer MEDICARE, OTHER, SELFPAY ==
[2021-05-25 19:35] VITALS: PULSE 60; RESP 18; TEMP 36.7; O2SAT 99
--- NOTE | 2021-05-25 21:06 | PC.NURSE ---
Pt states she is having a dull aching in her suprapubic area. Also reports odorous urine. Symptoms started this morning, states that she had diarrhea earlier this week and believes that is what has caused this UTI
[2021-05-25 21:49] LABS: Bacteria Urine Many (>30); RBC Urine 1-5/HPF (0-5/HPF); WBC Urine 30-100/HPF (0-5/HPF)
[2021-05-25 21:50] LABS: Culture Indicated Urine Specimen Cultured; Squamous Epithelial Cell Urine 0-1 /HPF (0-5/HPF)
--- NOTE | 2021-05-25 23:02 | ED_ITS ---
HPI - Female Genitourinary General Chief complaint: Urogenital-Female Stated complaint: UTI Time Seen by Provider: 05/25/21 23:01 Source: patient Mode of arrival: Ambulatory Limitations: no limitations History of Present Illness HPI Narrative: This is an 80-year-old female who comes to the emergency department with complaint of suprapubic discomfort as well as dysuria. She denies frequency or sense of urgency. She denies fevers. She denies back flank pain. No nausea or vomiting. No issues with bowel movements. Patient states she does not take any daily medications. She has had UTIs in the past and this feels similar. She has never had any resistance in her UTIs. She is allergic to penicillin. Related Data Previous Rx's Medication Instructions Recorded fluconazole 150 mg tablet 150 mg PO ONCE #1 tab 08/09/19 (Diflucan) fluticasone propionate 50 2 spray NASAL DAILY PRN #9.9 ml 11/02/19 mcg/actuation nasal spray,suspension azelastine 137 mcg (0.1 %) nasal 1 spray INTRANASAL BID #30 ml 03/10/21 spray aerosol benzonatate 100 mg capsule 100 mg PO BID-TID PRN #14 cap 03/10/21 nitrofurantoin 100 mg PO BID #10 cap 05/25/21 monohydrate/macrocrystals 100 mg capsule (Macrobid) Allergies Allergy/AdvReac Type Severity Reaction Status Date / Time Iodinated Contrast Media Allergy Severe Anaphylaxis Verified 07/30/20 09:29 [IODINATED CONTRAST MEDIA - IV DYE] milk Allergy Mild ear Verified 07/30/20 09:29 infection, hard mucus build up codeine [CODEINE] Allergy Unknown Verified 07/30/20 09:29 Penicillins [PENICILLINS] Allergy Unknown Verified 07/30/20 09:29 Review of Systems Review of Systems ROS Unobtainable: All systems reviewed & are unremarkable except as noted in HPI and below Patient History Medical History Peripheral neuropathy Urinary tract infection Vitamin B deficiency alcohol intake frequency: a few times a week Substance Use Type: does not use Exam Narrative Exam Narrative: GENERAL: Alert and oriented x three, female in mild distress. HEENT: Head normocephalic, atraumatic, EOMI, pupils reactive, face symmetric, moist mucous membranes NECK: Supple, full range of motion CARDIOVASCULAR: Regular rate and rhythm without murmurs, rubs or gallops. RESPIRATORY: Breath sounds equal bilaterally, no wheezes rales or rhonchi. ABDOMEN: Soft, nontender. Normoactive bowel sounds all 4 quadrants. No guarding or rebound, rigidity, no mass : No CVA tenderness EXTREMITIES: Normal range of motion, no clubbing or edema. Neurovascularly intact NEUROLOGICAL: Cranial nerves II through XII grossly intact. Moving all extremities SKIN: Warm, dry, no petechiae, no rashes or lesions. Initial Vital Signs Initial Vital Signs: Vital Signs Temperature 98.0 F 05/25/21 19:35 Pulse Rate 60 05/25/21 19:35 Respiratory Rate 18 05/25/21 19:35 Pulse Oximetry 99 05/25/21 19:35 Course Orders Ordered: ED Orders 05/25/21 21:03 Urine Culture Stat Urine Microscopic Stat Discontinued Medications Nitrofurantoin Macrocrystals (Nitrofurantoin 100mg Prepack) 1 bottle MISC SEEINSTR ONE Stop: 05/25/21 23:08 Nitrofurantoin Macrocrystals (Nitrofurantoin Er 100 Mg Capsule) 100 mg PO NOW ONE Stop: 05/25/21 23:20 Last Admin: 05/25/21 23:24 Dose: 100 mg Documented by: SHANNON Vital Signs Vital signs: Vital Signs - 8 hr 05/25/21 23:28 Pulse Rate 61 Respiratory Rate 16 Blood Pressure 126/74 Pulse Oximetry 97 MDM - Female Genitourinary Lab Data Labs: Lab Results 05/25/21 Range/Units 21:03 Urine RBC 1-5/hpf (0-5/HPF) Urine WBC 30-100/hpf H (0-5/HPF) Ur Squamous Epith Cells 0-1 /hpf (0-5/HPF) Urine Bacteria Many (>30) H (None) Ur Culture Indicated? Specimen cultured Urine Dip Bedside Urine Glucose Negative Bedside Urine Bilirubin - Negative Bedside Urine Ketone - Negative Urine Specific [place] 1.015 Bedside Urine Occult Blood ++ Bedside Urine pH 5.5 Bedside Urine Protein - Negative Bedside Urine Urobilinogen - Negative Bedside Urine Nitrite - Negative Bedside Urine Leukocytes +++ 500 Esterase MDM Narrative Medical decision making narrative: This is an 80-year-old female with symptoms consistent with a clinical UTI with leukocyte esterase on her urine. Patient started on oral antibiotic and return precautions discussed. Patient is otherwise reassuring physical and vital signs here in the department Discharge Plan Departure Patient Disposition: Home Clinical Impression: Acute UTI Instructions: DI for Urinary Tract Infection (UTI) Activity Restrictions/Additional Instructions: Follow-up with your physician this week if you are not having improvement in symptoms. Take antibiotics until completely gone. Prescription sent to [facility] in [place]. Please return for fevers, new abdominal, back or flank pain, persistent vomiting, lightheadedness or passing out, inability urinate, difficulty with bowel movements or other new or concerning symptoms. Prescriptions: New nitrofurantoin monohyd/m-cryst [Macrobid] 100 mg capsule 100 mg PO BID Qty: 10 RF: 0 No Action fluconazole [Diflucan] 150 mg tablet 150 mg PO ONCE Qty: 1 RF: 0 azelastine 137 mcg (0.1 %) aerosol,spray 1 spray intranasal BID Qty: 30 RF: 0 benzonatate 100 mg capsule 100 mg PO BID-TID PRN (Reason: cough) Qty: 14 RF: 0 fluticasone propionate 50 mcg/actuation spray,suspension 2 spray NASAL DAILY PRN (Reason: nasal congestion, post nasal drips, ear pressure) Qty: 9.9 RF: 0 Referrals: Christine Zeng DO [Primary Care Provider] -
[2021-05-25] MEDS: NITROFURANTOIN ER 100 MG CAPSULE PO (23:24)
[2021-05-25 23:28] VITALS: BP 126/74; PULSE 61; RESP 16; O2SAT 97
== END 2021-05-25 23:30 | disposition home or self-care (01) ==
PROVIDERS: Emergency Provider Emergency Medicine; PCP Internal Medicine
DX: N39.0 Urinary tract infection, site not specified (principal)
CPT/HCPCS: 81003; 81015; 87077; 87086; 87186; 99283

== ENCOUNTER → 2022-05-13 10:54 | Outpatient (CLI) | payer MEDICARE, OTHER, SELFPAY | PROVIDERS: PCP Internal Medicine; Visit Provider Nurse Practitioner Family | DX: J02.9 Acute pharyngitis, unspecified (principal) | CPT/HCPCS: 87070 ==

== ENCOUNTER → 2023-12-01 15:31 | Outpatient (CLI) | payer MEDICARE, OTHER, SELFPAY ==
[2023-12-01 16:24] LABS: Add Manual Diff / Slide Review NO; Basophils Absolute Auto 0 /uL (0-100); Eosinophils Absolute Auto 200 /uL (0-450); Eosinophils Percent Auto 4.2 % (2-4); Hematocrit 39.9 % (36-46); Hemoglobin 13.8 g/dL (12.0-16.0); Lymphocytes Absolute Auto 1500 /uL (1100-4500); Mean Corpuscular HGB Conc 34.5 % (30-36); Mean Corpuscular Hemoglobin 32.1 PG (26-34); Mean Corpuscular Volume 92.9 fL (80-100); Monocytes Absolute Auto 500 /uL (0-900); Monocytes Percent Auto 9.9 % (3-14); Neutrophils Absolute Auto 2900 /uL (1500-7000); Neutrophils Percent Auto 55.9 % (50-75); Platelet Count 212 X10^3/uL (150-400); White Blood Cell Count 5.1 X10^3/uL (4.5-11.0)
[2023-12-01 17:40] LABS: Vitamin B12 730 pg/mL (239-931)
== END ==
LOC: LAB 15:33
PROVIDERS: PCP Internal Medicine; Referring Provider Internal Medicine; Visit Provider Internal Medicine
DX: E53.8 Deficiency of other specified B group vitamins (principal)
CPT/HCPCS: 36415; 82607; 85025

== ENCOUNTER → 2024-04-11 13:11 | Outpatient (CLI) | payer MEDICARE, OTHER, SELFPAY ==
[2024-04-11 14:45] LABS: Add Manual Diff / Slide Review NO; Basophils Absolute Auto 0 /uL (0-100); Basophils Percent Auto 0.7 % (0-2); Eosinophils Absolute Auto 200 /uL (0-450); Eosinophils Percent Auto 2.7 % (2-4); Hemoglobin 14.1 g/dL (12.0-16.0); Lymphocytes Absolute Auto 1500 /uL (1100-4500); Lymphocytes Percent Auto 25.8 % (25-40); Mean Corpuscular HGB Conc 34.3 % (30-36); Mean Corpuscular Hemoglobin 32.2 PG (26-34); Mean Corpuscular Volume 93.8 fL (80-100); Monocytes Absolute Auto 600 /uL (0-900); Monocytes Percent Auto 9.9 % (3-14); Neutrophils Absolute Auto 3600 /uL (1500-7000); Neutrophils Percent Auto 60.9 % (50-75); Platelet Count 208 X10^3/uL (150-400); Red Blood Cell Count 4.37 X10^6/uL (4.0-5.2); Red Cell Distribution Width 12.4 % (11.6-14.8); White Blood Cell Count 5.8 X10^3/uL (4.5-11.0)
[2024-04-12 03:18] LABS: Vitamin B12 409 pg/mL (239-931)
== END ==
PROVIDERS: PCP Internal Medicine; Referring Provider Internal Medicine; Visit Provider Internal Medicine
DX: E53.8 Deficiency of other specified B group vitamins (principal)
CPT/HCPCS: 36415; 82607; 85025

== ENCOUNTER 2024-06-28 19:31 | Emergency (ER) | payer MEDICARE, OTHER, SELFPAY ==
[2024-06-28 20:02] VITALS: BP 128/59; PULSE 63; RESP 16; TEMP 36.7; O2SAT 97; BMI 30.2
[2024-06-28 20:29] LABS: Bacteria Urine Moderate (10-30); RBC Urine None Seen (0-5/HPF); Squamous Epithelial Cell Urine 0-1 /HPF (0-5/HPF); Urine Volume 10mL (spun); WBC Urine 10-30/HPF (0-5/HPF)
[2024-06-28 20:30] LABS: Culture Indicated Urine Specimen Cultured
--- NOTE | 2024-06-28 22:28 | ED_ITS ---
HPI - General Adult General Chief complaint: Urogenital-Female Stated complaint: UTI Time Seen by Provider: 06/28/24 22:22 Source: patient Mode of arrival: Family Vehicle History of Present Illness HPI narrative: Patient is an 83-year-old female who is here for evaluation of what she states is a urinary tract infection. States that starting this afternoon she started have urinary frequency urgency and dysuria. No back pain. No vomiting. No fevers. No change in bowel habits. Related Data Previous Rx's Medication Instructions Recorded fluconazole 150 mg tablet 150 mg PO ONCE Linda #1 tab 08/09/19 (Diflucan) fluticasone propionate 50 2 spray intranasal DAILY PRN nasal 11/02/19 mcg/actuation nasal congestion, post nasal drips, ear spray,suspension pressure #9.9 mL azelastine 137 mcg (0.1 %) nasal 1 spray intranasal BID #30 mL 03/10/21 spray benzonatate 100 mg capsule 100 mg PO BID-TID PRN cough #14 03/10/21 caps nitrofurantoin 100 mg PO BID #10 caps 05/25/21 monohydrate/macrocrystals 100 mg capsule (Macrobid) sulfamethoxazole 800 1 tab PO Q12H #14 tabs 12/07/22 mg-trimethoprim 160 mg tablet (Bactrim DS) cephalexin 500 mg capsule 500 mg PO BID 7 days #14 caps 06/28/24 Allergies Allergy/AdvReac Type Severity Reaction Status Date / Time Iodinated Contrast Media Allergy Severe Anaphylaxis Verified 06/28/24 20:08 [IODINATED CONTRAST MEDIA - IV DYE] milk Allergy Mild ear Verified 06/28/24 20:08 infection, hard mucus build up codeine [CODEINE] Allergy Unknown Verified 06/28/24 20:08 Penicillins [PENICILLINS] Allergy Unknown Verified 06/28/24 20:08 Review of Systems Review of Systems Narrative: See HPI Patient History Medical History Urinary tract infection Peripheral neuropathy Vitamin B deficiency Social History Smoking Status: Former smoker Smoking Status: Former smoker alcohol intake frequency: a few times a week Substance Use Type: does not use Exam Initial Vital Signs Initial Vital Signs: Vital Signs Temperature 98.1 F 06/28/24 20:02 Pulse Rate 63 06/28/24 20:02 Respiratory Rate 16 06/28/24 20:02 Blood Pressure 128/59 L 06/28/24 20:02 Pulse Oximetry 97 06/28/24 20:02 Oxygen Delivery Method Room Air 06/28/24 20:02 Const General: cooperative, comfortable and No ill appearing Resp Effort & Inspection: normal respiratory effort Cardio Rate: regular rate GI Inspection: non-distended Course Orders Ordered: ED Orders 06/28/24 19:58 Urine Culture Stat Urine Microscopic Stat Discontinued Medications Cephalexin HCl (Cephalexin 250 Mg Capsule) 500 mg PO NOW ONE Stop: 06/28/24 22:30 Last Admin: 06/28/24 22:35 Dose: 500 mg Documented By: AB Vital Signs Vital signs: Vital Signs - 8 hr 06/28/24 20:02 Temperature 98.1 F Pulse Rate 63 Respiratory Rate 16 Blood Pressure 128/59 L Pulse Oximetry 97 Oxygen Delivery Method Room Air Medical Decision Making Lab Data Labs: Lab Results 06/28/24 Range/Units 19:58 Urine RBC None seen (0-5/HPF) Urine WBC 10-30/hpf H (0-5/HPF) Ur Squamous Epith Cells 0-1 /hpf (0-5/HPF) Urine Bacteria Moderate (10-30) H (None) Ur Culture Indicated? Specimen cultured Vol Urine Centrifuged 10ml (spun) Urine Dip Bedside Urine Glucose Negative Bedside Urine Bilirubin - Negative Bedside Urine Ketone - Negative Urine Specific [place] 1.005 Bedside Urine Occult Blood +/- Bedside Urine pH 7.0 Bedside Urine Protein - Negative Bedside Urine Urobilinogen - Negative Bedside Urine Nitrite - Negative Bedside Urine Leukocytes +++ 500 Esterase Point of care testing: Urine Dip Bedside Urine Glucose Negative Bedside Urine Bilirubin - Negative Bedside Urine Ketone - Negative Urine Specific [place] 1.005 Bedside Urine Occult Blood +/- Bedside Urine pH 7.0 Bedside Urine Protein - Negative Bedside Urine Urobilinogen - Negative Bedside Urine Nitrite - Negative Bedside Urine Leukocytes +++ 500 Esterase MDM Narrative Medical decision making narrative: History and physical exam and urinalysis is consistent with a urinary tract infection. Urine culture has been at the time of her discharge over will start her on antibiotics. First dose given here in the ER and a prescription was sent to the pharmacy of her choice. She was informed that if we needed to change antibiotics based on the urine culture result we will contact her to do so. She was given return precautions. She expressed understanding and agreement. Discharge Plan Departure Patient Disposition: Home Clinical Impression: Urinary tract infection Instructions: DI for Urinary Tract Infection (UTI) Activity Restrictions/Additional Instructions: Recommend that you take the antibiotics as directed. There was a urine culture pending at the time of your discharge we will contact you if we need to change antibiotics based on this. Return to the emergency department for new or worsening symptoms. Prescriptions: New cephalexin 500 mg capsule 500 mg PO BID 7 Days Qty: 14 0RF No Action fluconazole [Diflucan] 150 mg tablet 150 mg PO ONCE Qty: 1 0RF Rx Instructions: as a single dose sulfamethoxazole-trimethoprim [Bactrim DS] 800-160 mg tablet 1 tab PO Q12H Qty: 14 0RF azelastine 137 mcg (0.1 %) aerosol,spray 1 spray intranasal BID Qty: 30 0RF Rx Instructions: administer into each nostril benzonatate 100 mg capsule 100 mg PO BID-TID PRN (Reason: cough) Qty: 14 0RF fluticasone propionate 50 mcg/actuation spray,suspension 2 spray NASAL DAILY PRN (Reason: nasal congestion, post nasal drips, ear pressure) Qty: 9.9 0RF Rx Instructions: administer into each nostril nitrofurantoin monohyd/m-cryst [Macrobid] 100 mg capsule 100 mg PO BID Qty: 10 0RF Rx Instructions: must administer with a meal/food Referrals: Christine Zeng DO [Primary Care Provider] - Stand Alone Forms: Patient Portal/API/Survey
[2024-06-28] MEDS: cephALEXin 250 MG CAPSULE 500 MG PO (22:35)
== END 2024-06-28 22:39 | disposition home or self-care (01) ==
PROVIDERS: Emergency Provider Emergency Medicine; PCP Internal Medicine
DX: N39.0 Urinary tract infection, site not specified (principal)
CPT/HCPCS: 81003; 81015; 87077; 87086; 87186; 99283

== ENCOUNTER 2024-07-13 04:22 | Emergency (ER) | payer MEDICARE, OTHER, SELFPAY ==
[2024-07-13 04:32] VITALS: TEMP 35.9; BMI 24.3
[2024-07-13 04:37] LABS: Bilirubin Urine UA NEGATIVE (NEGATIVE); Color Urine UA YELLOW; Glucose Urine UA NEGATIVE (Negative); Ketones Urine UA NEGATIVE (NEGATIVE); Leukocyte Esterase Urine UA 3+ (NEGATIVE); Nitrite Urine UA NEGATIVE (Negative); Occult Blood Urine UA TRACE-INTACT (Negative); Protein Urine UA NEGATIVE (Negative); Specific Gravity Urine UA <=1.005 (1.000-1.035); Urobilinogen Urine UA 0.2 E.U./dL (0.2)
--- NOTE | 2024-07-13 04:38 | PC.NURSE ---
This RN at bedside for physician exam and assessment. Patient endorses using a sex toy around anus and around 0130 began having vaginal pain/discomfort.
--- NOTE | 2024-07-13 04:41 | ED_ITS ---
HPI - Female Genitourinary General Chief complaint: Urogenital-Female Stated complaint: uti Time Seen by Provider: 07/13/24 04:23 Source: patient Mode of arrival: Ambulatory History of Present Illness HPI Narrative: 83-year-old female presents by private vehicle for suprapubic discomfort and burning with urination. Patient states that last night she used a vibrator on herself. She states that she sometimes inserts this vibrator into her rectum. Patient seen in the ED 2 weeks ago for similar symptoms, diagnosed with UTI. Patient concerned she has another UTI. Denies other complaints at this time. Related Data Previous Rx's Medication Instructions Recorded fluconazole 150 mg tablet 150 mg PO ONCE Linda #1 tab 08/09/19 (Diflucan) fluticasone propionate 50 2 spray intranasal DAILY PRN nasal 11/02/19 mcg/actuation nasal congestion, post nasal drips, ear spray,suspension pressure #9.9 mL azelastine 137 mcg (0.1 %) nasal 1 spray intranasal BID #30 mL 03/10/21 spray benzonatate 100 mg capsule 100 mg PO BID-TID PRN cough #14 03/10/21 caps nitrofurantoin 100 mg PO BID #10 caps 05/25/21 monohydrate/macrocrystals 100 mg capsule (Macrobid) sulfamethoxazole 800 1 tab PO Q12H #14 tabs 12/07/22 mg-trimethoprim 160 mg tablet (Bactrim DS) nitrofurantoin macrocrystal 100 mg 100 mg PO BID #14 caps 07/13/24 capsule phenazopyridine 200 mg tablet 200 mg PO TID PRN pain #30 tabs 07/13/24 (Pyridium) Allergies Allergy/AdvReac Type Severity Reaction Status Date / Time Iodinated Contrast Media Allergy Severe Anaphylaxis Verified 06/28/24 20:08 [IODINATED CONTRAST MEDIA - IV DYE] milk Allergy Mild ear Verified 06/28/24 20:08 infection, hard mucus build up codeine [CODEINE] Allergy Unknown Verified 06/28/24 20:08 Penicillins [PENICILLINS] Allergy Unknown Verified 06/28/24 20:08 Patient History Medical History Urinary tract infection Peripheral neuropathy Vitamin B deficiency alcohol intake frequency: a few times a week Substance Use Type: does not use Exam Initial Vital Signs Initial Vital Signs: Vital Signs Temperature 96.7 F L 07/13/24 04:32 Const: Awake, alert, no acute distress, nontoxic appearing GI: Soft, nontender, nondistended : 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, mild perivaginal irritation, no discharge, otherwise normal anatomy Skin: Warm, Dry, intact, no rashes Neuro: AO x3, CN II-XII grossly intact, moves all extremities Course Orders Ordered: ED Orders 07/13/24 04:30 UA Complete [Urinalysis and Microscopic] Stat Urine Culture Stat Vital Signs Vital signs: Vital Signs - 8 hr 07/13/24 04:32 Temperature 96.7 F L MDM - Female Genitourinary Lab Data Labs: Lab Results 07/13/24 Range/Units 04:30 Urine Color Yellow Urine Appearance Slightly cloudy Urine pH 7.0 (4.5-8.0) Ur Specific [place] <=1.005 (1.000-1.035) Urine Protein Negative (Negative) Urine Glucose (UA) Negative (Negative) g/dL Urine Ketones Negative (NEGATIVE) Urine Occult Blood Trace-intact (Negative) Urine Nitrate Negative (Negative) Urine Bilirubin Negative (NEGATIVE) Urine Urobilinogen 0.2 (0.2) E.U./dL Ur Leukocyte Esterase 3+ H (NEGATIVE) Urine RBC 0-1/hpf (0-5/HPF) Urine WBC 30-100/hpf H (0-5/HPF) Ur Squamous Epith Cells 0-1 /hpf (0-5/HPF) Urine Bacteria Many (>30) H (None) Ur Culture Indicated? Specimen cultured Vol Urine Centrifuged 10ml (spun) Urine Dip Bedside Urine Glucose Negative Bedside Urine Bilirubin - Negative Bedside Urine Ketone - Negative Urine Specific [place] 1.005 Bedside Urine Occult Blood +/- Bedside Urine pH 7 Bedside Urine Protein - Negative Bedside Urine Urobilinogen - Negative Bedside Urine Nitrite - Negative Bedside Urine Leukocytes ++ 125 Esterase MDM Narrative Medical decision making narrative: Patient presenting with suprapubic discomfort and burning with urination concerning for urinary tract infection. Reports that this occured after using a vibrator in her rectum. She does say that she washes her hands and the toy before using it near her vagina, however it is possible there is some cross contamination. UA with leukocyte esterase, bacteria, wbcs. Based on previous cultures nitrofurantoin given as antibiotic. First dose given in the ED. Patient was counseled on the importance of washing her toys and not using the same toys on her vaginal area as she was on her rectum. If this does not improve her symptoms and I do recommend that she discuss this with either her PCP or her OBGYN. Discharge Plan Departure Patient Disposition: Home Clinical Impression: Urinary tract infection Instructions: DI for Urinary Tract Infection (UTI) Activity Restrictions/Additional Instructions: finish all of your antibiotics even if you notice improvement in your symptoms. Since this is the 2nd time this has happened within a short amount of time I would recommend talking to either your primary care doctor or your OBGYN about your symptoms. Prescriptions: New nitrofurantoin macrocrystal 100 mg capsule 100 mg PO BID Qty: 14 0RF Rx Instructions: must administer with a meal/food phenazopyridine [Pyridium] 200 mg tablet 200 mg PO TID PRN (Reason: pain) Qty: 30 0RF No Action fluconazole [Diflucan] 150 mg tablet 150 mg PO ONCE Qty: 1 0RF Rx Instructions: as a single dose sulfamethoxazole-trimethoprim [Bactrim DS] 800-160 mg tablet 1 tab PO Q12H Qty: 14 0RF azelastine 137 mcg (0.1 %) aerosol,spray 1 spray intranasal BID Qty: 30 0RF Rx Instructions: administer into each nostril benzonatate 100 mg capsule 100 mg PO BID-TID PRN (Reason: cough) Qty: 14 0RF fluticasone propionate 50 mcg/actuation spray,suspension 2 spray NASAL DAILY PRN (Reason: nasal congestion, post nasal drips, ear pressure) Qty: 9.9 0RF Rx Instructions: administer into each nostril nitrofurantoin monohyd/m-cryst [Macrobid] 100 mg capsule 100 mg PO BID Qty: 10 0RF Rx Instructions: must administer with a meal/food Referrals: Christine Zeng DO [Primary Care Provider] - Stand Alone Forms: Patient Portal/API/Survey
[2024-07-13 04:47] LABS: Appearance Urine UA Slightly Cloudy
[2024-07-13 04:48] LABS: Bacteria Urine Many (>30); RBC Urine 0-1/HPF (0-5/HPF); Urine Volume 10mL (spun); WBC Urine 30-100/HPF (0-5/HPF)
[2024-07-13 04:49] LABS: Culture Indicated Urine Specimen Cultured; Squamous Epithelial Cell Urine 0-1 /HPF (0-5/HPF)
[2024-07-13] MEDS: NITROFURANTOIN ER 100 MG CAPSULE PO (05:01)
== END 2024-07-13 05:05 | disposition home or self-care (01) ==
PROVIDERS: Emergency Provider Emergency Medicine; PCP Internal Medicine
DX: N39.0 Urinary tract infection, site not specified (principal)
CPT/HCPCS: 81001; 81003; 87077; 87086; 87186; 99283

== ENCOUNTER 2024-07-16 14:44 | Emergency (ER) | payer MEDICARE, OTHER, SELFPAY ==
[2024-07-16 14:52] VITALS: BP 138/70; PULSE 62; RESP 18; TEMP 36.2; O2SAT 99; BMI 24.3
[2024-07-16 16:31] LABS: Appearance Urine UA CLEAR; Bilirubin Urine UA NEGATIVE (NEGATIVE); Color Urine UA YELLOW; Glucose Urine UA NEGATIVE (Negative); Ketones Urine UA NEGATIVE (NEGATIVE); Leukocyte Esterase Urine UA 3+ (NEGATIVE); Nitrite Urine UA NEGATIVE (Negative); Occult Blood Urine UA TRACE-INTACT (Negative); Protein Urine UA NEGATIVE (Negative); Specific Gravity Urine UA <=1.005 (1.000-1.035); Urobilinogen Urine UA 0.2 E.U./dL (0.2)
[2024-07-16 16:37] LABS: Bacteria Urine Many (>30); Culture Indicated Urine Specimen Cultured; RBC Urine 0-1/HPF (0-5/HPF); Squamous Epithelial Cell Urine 0-1 /HPF (0-5/HPF); Urine Volume 10mL (spun); WBC Urine 10-30/HPF (0-5/HPF)
--- NOTE | 2024-07-16 18:48 | ED.FEMALEGU ---
HPI - Female Genitourinary <Abigail Dickinson PA-C - Last Filed: 07/16/24 18:55> General Chief complaint: Urogenital-Female Stated complaint: still has her UTI Time Seen by Provider: 07/16/24 16:26 History of Present Illness HPI Narrative: 83-year-old female 83-year-old female returns to the ED for continued dysuria. Patient is complaining of burning when urinating and an aching suprapubic pain pain is relieved with the phenazopyridine that she was given in the ED during her last visit. Patient was seen on 07/13/2024, diagnosed with a UTI and prescribed nitrofurantoin. Patient has been taking the medication as prescribed, states that her symptoms have not improved. Patient denies fever, chills, nausea, vomiting, diarrhea, constipation. Related Data Previous Rx's Medication Instructions Recorded fluconazole 150 mg tablet 150 mg PO ONCE Linda #1 tab 08/09/19 (Diflucan) fluticasone propionate 50 2 spray intranasal DAILY PRN nasal 11/02/19 mcg/actuation nasal congestion, post nasal drips, ear spray,suspension pressure #9.9 mL azelastine 137 mcg (0.1 %) nasal 1 spray intranasal BID #30 mL 03/10/21 spray benzonatate 100 mg capsule 100 mg PO BID-TID PRN cough #14 03/10/21 caps nitrofurantoin 100 mg PO BID #10 caps 05/25/21 monohydrate/macrocrystals 100 mg capsule (Macrobid) sulfamethoxazole 800 1 tab PO Q12H #14 tabs 12/07/22 mg-trimethoprim 160 mg tablet (Bactrim DS) nitrofurantoin macrocrystal 100 mg 100 mg PO BID #14 caps 07/13/24 capsule phenazopyridine 200 mg tablet 200 mg PO TID PRN pain #30 tabs 07/13/24 (Pyridium) cefpodoxime 200 mg tablet 200 mg PO Q12H 10 days #20 tabs 07/16/24 Allergies Allergy/AdvReac Type Severity Reaction Status Date / Time Iodinated Contrast Media Allergy Severe Anaphylaxis Verified 06/28/24 20:08 [IODINATED CONTRAST MEDIA - IV DYE] milk Allergy Mild ear Verified 06/28/24 20:08 infection, hard mucus build up codeine [CODEINE] Allergy Unknown Verified 06/28/24 20:08 Penicillins [PENICILLINS] Allergy Unknown Verified 06/28/24 20:08 Review of Systems <Abigail Dickinson PA-C - Last Filed: 07/16/24 18:55> Constitutional Constitutional: Denies chills, Denies fatigue, Denies fever(s), Denies frequent falls, Denies lethargy and Denies weakness Eyes Eyes: Denies change in vision, Denies eye discharge, Denies irritation and Denies loss of vision ENT Ears, Nose, Mouth, and Throat: Denies change in voice, Denies dizziness, Denies neck pain, Denies sore throat and Denies throat swelling Cardiovascular Cardiovascular: Denies chest pain, Denies irregular heart rhythm, Denies lightheadedness, Denies palpitations, Denies dyspnea, Denies dyspnea on exertion and Denies orthopnea Respiratory Respiratory: Denies cough, Denies dyspnea, Denies dyspnea on exertion and Denies wheezing Gastrointestinal Gastrointestinal: Denies abdominal pain, Denies change in bowel habits, Denies diarrhea, Denies nausea and Denies vomiting Genitourinary Genitourinary: Reports dysuria Musculoskeletal Musculoskeletal: Denies neck pain and Denies numbness Integumentary/Breasts Skin/Breast: Denies pruritus, Denies erythema, Denies rash and Denies wounds Neurologic Neurologic: Denies behavioral changes, Denies confusion, Denies dizziness, Denies frequent falls, Denies loss of vision, Denies numbness and Denies weakness Psychiatric Psychiatric: Denies anxiety, Denies behavioral changes, Denies confusion, Denies depression, Denies homicidal ideation and Denies suicidal ideation Endocrine Endocrine: Denies fatigue, Denies flushing and Denies palpitations Hematologic/Lymphatic Hematologic/Lymphatic: Denies easy bruising Allergic/Immunologic Allergic/Immunologic: Denies urticaria, Denies throat swelling and Denies wheezing Patient History <Abigail Dickinson PA-C - Last Filed: 07/16/24 18:55> Medical History Urinary tract infection Peripheral neuropathy Vitamin B deficiency alcohol intake frequency: a few times a week Substance Use Type: does not use Exam <Abigail Dickinson PA-C - Last Filed: 07/16/24 18:55> Narrative Exam Narrative: Const General:?cooperative, healthy appearing and comfortable [facility] [place] Head:?normal to inspection Ears:?hearing grossly normal bilaterally Nose:?external nose normal Face and sinus:?normal facial exam and sinuses nontender Mouth:?oral mucosae normal Throat:?posterior oropharynx normal Eyes General:?appearance normal, both eyes and all related structures Neck Neck:?normal visual inspection and no lymphadenopathy noted Resp Effort & Inspection:?normal respiratory effort Auscultation:?clear to auscultation bilaterally Cardio Rate:?regular rate Rhythm:?regular rhythm Neuro General:?patient alert, patient awake and patient oriented x3 Initial Vital Signs Initial Vital Signs: Vital Signs Temperature 97.2 F L 07/16/24 14:52 Pulse Rate 62 07/16/24 14:52 Respiratory Rate 18 07/16/24 14:52 Blood Pressure 138/70 07/16/24 14:52 Pulse Oximetry 99 07/16/24 14:52 Oxygen Delivery Method Room Air 07/16/24 14:52 <Azucena Mcallister DO - Last Filed: 07/16/24 21:26> Initial Vital Signs Initial Vital Signs: Vital Signs Temperature 97.2 F L 07/16/24 14:52 Pulse Rate 62 07/16/24 14:52 Respiratory Rate 18 07/16/24 14:52 Blood Pressure 138/70 07/16/24 14:52 Pulse Oximetry 99 07/16/24 14:52 Oxygen Delivery Method Room Air 07/16/24 14:52 Course <Abigail Dickinson PA-C - Last Filed: 07/16/24 18:55> Orders Ordered: ED Orders 07/16/24 16:00 Urinalysis and Microscopic Stat Urine Culture Stat Discontinued Medications Ceftriaxone Sodium (Ceftriaxone 2,000 Mg Vial) 1,000 mg IM NOW ONE Stop: 07/16/24 18:29 Last Admin: 07/16/24 18:54 Dose: 1,000 mg Documented By: RB Vital Signs Vital signs: Vital Signs - 8 hr 07/16/24 14:52 07/16/24 18:54 Temperature 97.2 F L 98.9 F Pulse Rate 62 78 Respiratory Rate 18 16 Blood Pressure 138/70 136/75 Pulse Oximetry 99 99 Oxygen Delivery Method Room Air Room Air <DO Royer Iqbal Last Filed: 07/16/24 21:26> Orders Ordered: ED Orders 07/16/24 16:00 Urinalysis and Microscopic Stat Urine Culture Stat Discontinued Medications Ceftriaxone Sodium (Ceftriaxone 2,000 Mg Vial) 1,000 mg IM NOW ONE Stop: 07/16/24 18:29 Last Admin: 07/16/24 18:54 Dose: 1,000 mg Documented By: BAO Vital Signs Vital signs: Vital Signs - 8 hr 07/16/24 14:52 07/16/24 18:54 Temperature 97.2 F L 98.9 F Pulse Rate 62 78 Respiratory Rate 18 16 Blood Pressure 138/70 136/75 Pulse Oximetry 99 99 Oxygen Delivery Method Room Air Room Air MDM - Female Genitourinary <Abigail Dickinson PA-C - Last Filed: 07/16/24 18:55> Lab Data Labs: Lab Results 07/16/24 Range/Units 16:00 Urine Color Yellow Urine Appearance Clear Urine pH 7.0 (4.5-8.0) Ur Specific [place] <=1.005 (1.000-1.035) Urine Protein Negative (Negative) Urine Glucose (UA) Negative (Negative) g/dL Urine Ketones Negative (NEGATIVE) Urine Occult Blood Trace-intact (Negative) Urine Nitrate Negative (Negative) Urine Bilirubin Negative (NEGATIVE) Urine Urobilinogen 0.2 (0.2) E.U./dL Ur Leukocyte Esterase 3+ H (NEGATIVE) Urine RBC 0-1/hpf (0-5/HPF) Urine WBC 10-30/hpf H (0-5/HPF) Ur Squamous Epith Cells 0-1 /hpf (0-5/HPF) Urine Bacteria Many (>30) H (None) Ur Culture Indicated? Specimen cultured Vol Urine Centrifuged 10ml (spun) [facility] Narrative Medical decision making narrative: 83-year-old female 83-year-old female returns to the ED for continued dysuria. Obtained a UA again today, which was positive for a UTI. 10-30 WBC, 3+ leukocyte esterase. Discussed findings with patient. Recommend patient stop the nitrofurantoin. Patient was given a IM dose of 1 g of ceftriaxone in the ED today. Patient given a prescription for cefpodoxime for the next 10 days. Recommend follow-up with PCP as soon as possible. ED return precautions discussed with patient. Patient verbalized understanding. Medical records reviewed: Yes <Azucena Mcallister DO - Last Filed: 07/16/24 21:26> Lab Data Labs: Lab Results 07/16/24 Range/Units 16:00 Urine Color Yellow Urine Appearance Clear Urine pH 7.0 (4.5-8.0) Ur Specific [place] <=1.005 (1.000-1.035) Urine Protein Negative (Negative) Urine Glucose (UA) Negative (Negative) g/dL Urine Ketones Negative (NEGATIVE) Urine Occult Blood Trace-intact (Negative) Urine Nitrate Negative (Negative) Urine Bilirubin Negative (NEGATIVE) Urine Urobilinogen 0.2 (0.2) E.U./dL Ur Leukocyte Esterase 3+ H (NEGATIVE) Urine RBC 0-1/hpf (0-5/HPF) Urine WBC 10-30/hpf H (0-5/HPF) Ur Squamous Epith Cells 0-1 /hpf (0-5/HPF) Urine Bacteria Many (>30) H (None) Ur Culture Indicated? Specimen cultured Vol Urine Centrifuged 10ml (spun) Discharge Plan Departure Patient Disposition: Home Clinical Impression: Urinary tract infection Qualifiers: Urinary tract infection type: acute cystitis Hematuria presence: without hematuria Qualified Code(s): N30.00 - Acute cystitis without hematuria Instructions: DI for Urinary Tract Infection (UTI) Activity Restrictions/Additional Instructions: You were evaluated in the ED today for urinary discomfort. Your urine still appears infected. you were given an antibioticInjection in the ED today. You are being prescribed a new antibiotic to take at home. Please discontinue the previous antibiotic and take the new medication for 10 days. Please follow-up with your PCP as soon as possible. Return to the ED if you have worsening symptoms. Prescriptions: New cefpodoxime 200 mg tablet 200 mg PO Q12H 10 Days Qty: 20 0RF Rx Instructions: must administer with a meal/food No Action fluconazole [Diflucan] 150 mg tablet 150 mg PO ONCE Qty: 1 0RF Rx Instructions: as a single dose sulfamethoxazole-trimethoprim [Bactrim DS] 800-160 mg tablet 1 tab PO Q12H Qty: 14 0RF azelastine 137 mcg (0.1 %) aerosol,spray 1 spray intranasal BID Qty: 30 0RF Rx Instructions: administer into each nostril benzonatate 100 mg capsule 100 mg PO BID-TID PRN (Reason: cough) Qty: 14 0RF fluticasone propionate 50 mcg/actuation spray,suspension 2 spray NASAL DAILY PRN (Reason: nasal congestion, post nasal drips, ear pressure) Qty: 9.9 0RF Rx Instructions: administer into each nostril nitrofurantoin monohyd/m-cryst [Macrobid] 100 mg capsule 100 mg PO BID Qty: 10 0RF Rx Instructions: must administer with a meal/food nitrofurantoin macrocrystal 100 mg capsule 100 mg PO BID Qty: 14 0RF Rx Instructions: must administer with a meal/food phenazopyridine [Pyridium] 200 mg tablet 200 mg PO TID PRN (Reason: pain) Qty: 30 0RF Referrals: Christine Zeng DO [Primary Care Provider] - Stand Alone Forms: Patient Portal/API/Survey ED Sign-out <Azucena Mcallister DO - Last Filed: 07/16/24 21:26> Cosign ED Attending Cosphilippeature Attestation: I was available for consultation.
[2024-07-16 18:54] VITALS: BP 136/75; PULSE 78; RESP 16; TEMP 37.2; O2SAT 99
[2024-07-16] MEDS: cefTRIAXone 2,000 MG VIAL 1000 MG IM (18:54)
== END 2024-07-16 18:55 | disposition home or self-care (01) ==
PROVIDERS: Emergency Medicine; Emergency Provider Student in an Organized Health Care Education/Training Program; PCP Internal Medicine
DX: N30.00 Acute cystitis without hematuria (principal)
CPT/HCPCS: 81001; 87077; 87086; 87186; 96372; 99283; J0696

== ENCOUNTER 2025-03-23 19:47 | Emergency (ER) | payer MEDICARE, OTHER, SELFPAY ==
[2025-03-23 19:58] VITALS: BP 128/59; PULSE 65; RESP 17; TEMP 36.6; O2SAT 98; BMI 23.3
== END 2025-03-23 23:02 | disposition left against medical advice (07) ==
PROVIDERS: Emergency Provider Emergency Medicine; PCP Internal Medicine
CPT/HCPCS: 99281

== ENCOUNTER 2025-07-08 23:58 | Emergency (ER) | payer MEDICARE, OTHER, SELFPAY ==
[2025-07-09 00:12] VITALS: BP 149/67; PULSE 73; RESP 16; TEMP 36.8; O2SAT 96; BMI 23.5
--- NOTE | 2025-07-09 00:15 | DI.RAD.S_ITS ---
PROCEDURE: XR CHEST 2V INDICATIONS: shortness of breath with upper respiratory infection TECHNIQUE: 2 views of the chest were acquired. COMPARISON: None. FINDINGS: Surgical changes and devices: Right shoulder arthro. Lungs and pleura: Lungs are clear. No pleural effusions or pneumothorax. Mediastinum: Mediastinal contours are normal. Heart size is normal. Bones and chest wall: No suspicious bony abnormalities. Soft tissues appear unremarkable. IMPRESSION: No acute cardiopulmonary abnormality is seen. Dictated by: Mariposa Barba M.D.,Ph.D. on 07/09/2025 at 1:17 Approved by: Mariposa Barba M.D.,Ph.D. on 07/09/2025 at 1:18
== END 2025-07-09 01:27 | disposition left against medical advice (07) ==
PROVIDERS: Emergency Provider Emergency Medicine; PCP Internal Medicine
DX: R06.02 Shortness of breath (principal); R05.9 Cough, unspecified
CPT/HCPCS: 71046; 99281

== ENCOUNTER 2025-07-09 12:36 | Emergency (ER) | payer MEDICARE, OTHER, SELFPAY ==
[2025-07-09 12:42] VITALS: BP 139/76; PULSE 78; RESP 16; TEMP 36.8; O2SAT 98; BMI 25.0
--- NOTE | 2025-07-09 13:49 | EKG_ITS ---
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
[2025-07-09 15:15] VITALS: BP 109/63; PULSE 70; RESP 18; O2SAT 97
--- NOTE | 2025-07-09 15:20 | PC.NURSE ---
resp. exam deferred to provider
--- NOTE | 2025-07-09 18:59 | ED.SOB ---
HPI - SOB/Dyspnea <Abigail Dickinson PA-C - Last Filed: 07/09/25 19:12> General Chief Complaint: Shortness of Breath/Dyspnea Stated Complaint: returning to get results from prev visit Time Seen by Provider: 07/09/25 13:31 Source: patient Mode of arrival: Ambulatory Limitations: no limitations History of Present Illness HPI Narrative: 84-year-old female presents to the ED with a cough and chest pain for 1 week. Patient came in the ED last night, had a chest x-ray done but left without being seen since she thought she was done with the visit but did not get her results. She presents to the ED again today to get her results. No new complaints. Patient states that she has had some chest pain when coughing, symptoms started last week with a cold. No fever, chills, nausea, vomiting, abdominal pain, lightheadedness, dizziness, syncope. Patient states that she only wants to know the results of her chest x-ray. Related Data Previous Rx's ?Medication ?Instructions ?Recorded fluconazole 150 mg tablet 150 mg PO ONCE Linda #1 tab 08/09/19 (Diflucan) fluticasone propionate 50 2 spray intranasal DAILY PRN nasal 11/02/19 mcg/actuation nasal congestion, post nasal drips, ear spray,suspension pressure #9.9 mL azelastine 137 mcg (0.1 %) nasal 1 spray intranasal BID #30 mL 03/10/21 spray benzonatate 100 mg capsule 100 mg PO BID-TID PRN cough #14 03/10/21 caps nitrofurantoin 100 mg PO BID #10 caps 05/25/21 monohydrate/macrocrystals 100 mg capsule (Macrobid) sulfamethoxazole 800 1 tab PO Q12H #14 tabs 12/07/22 mg-trimethoprim 160 mg tablet (Bactrim DS) nitrofurantoin macrocrystal 100 mg 100 mg PO BID #14 caps 07/13/24 capsule phenazopyridine 200 mg tablet 200 mg PO TID PRN pain #30 tabs 07/13/24 (Pyridium) Allergies Allergy/AdvReac Type Severity Reaction Status Date / Time Iodinated Contrast Media Allergy Severe Anaphylaxis Verified 07/09/25 00:11 (IODINATED CONTRAST MEDIA - IV DYE) milk Allergy Mild ear Verified 07/09/25 00:11 infection, hard mucus build up codeine (CODEINE) Allergy Unknown Verified 07/09/25 00:11 Penicillins (PENICILLINS) Allergy Unknown Verified 07/09/25 00:11 Review of Systems <Abigail Dickinson PA-C - Last Filed: 07/09/25 19:12> Constitutional Constitutional: Denies chills, Denies fatigue, Denies fever(s), Denies frequent falls, Denies lethargy and Denies weakness Eyes Eyes: Denies change in vision, Denies eye discharge, Denies irritation and Denies loss of vision ENT Ears, Nose, Mouth, and Throat: Denies change in voice, Denies dizziness, Denies neck pain, Denies sore throat and Denies throat swelling Comments: Chest congestion Cardiovascular Cardiovascular: Reports chest pain, Denies irregular heart rhythm, Denies lightheadedness, Denies palpitations, Denies dyspnea, Denies dyspnea on exertion and Denies orthopnea Respiratory Respiratory: Reports cough, Denies dyspnea, Denies dyspnea on exertion and Denies wheezing Gastrointestinal Gastrointestinal: Denies abdominal pain, Denies change in bowel habits, Denies diarrhea, Denies nausea and Denies vomiting Musculoskeletal Musculoskeletal: Denies neck pain and Denies numbness Integumentary/Breasts Skin/Breast: Denies pruritus, Denies erythema, Denies rash and Denies wounds Neurologic Neurologic: Denies behavioral changes, Denies confusion, Denies dizziness, Denies frequent falls, Denies loss of vision, Denies numbness and Denies weakness Psychiatric Psychiatric: Denies anxiety, Denies behavioral changes, Denies confusion, Denies depression, Denies homicidal ideation and Denies suicidal ideation Endocrine Endocrine: Denies fatigue, Denies flushing and Denies palpitations Hematologic/Lymphatic Hematologic/Lymphatic: Denies easy bruising Allergic/Immunologic Allergic/Immunologic: Denies urticaria, Denies throat swelling and Denies wheezing Patient History <Abigail Dickinson PA-C - Last Filed: 07/09/25 19:12> Medical History Urinary tract infection Peripheral neuropathy Vitamin B deficiency alcohol intake frequency: a few times a week Alcohol type: beer Exam <Abigail Dickinson PA-C - Last Filed: 07/09/25 19:12> Narrative Exam Narrative: Const General:?cooperative, healthy appearing and comfortable [facility] Head:?normal to inspection Ears:?hearing grossly normal bilaterally Nose:?external nose normal Face and sinus:?normal facial exam and sinuses nontender Mouth:?oral mucosae normal Throat:?posterior oropharynx normal Eyes General:?appearance normal, both eyes and all related structures Neck Neck:?normal visual inspection and no lymphadenopathy noted Resp Effort & Inspection:?normal respiratory effort Auscultation:?clear to auscultation bilaterally Cardio Rate:?regular rate Rhythm:?regular rhythm Neuro General:?patient alert, patient awake and patient oriented x3 Initial Vital Signs Initial Vital Signs: Vital Signs Temperature 98.2 F 07/09/25 12:42 Pulse Rate 78 07/09/25 12:42 Respiratory Rate 16 07/09/25 12:42 Blood Pressure 139/76 07/09/25 12:42 Pulse Oximetry 98 07/09/25 12:42 Oxygen Delivery Method Room Air 07/09/25 12:42 <DO Royer Pena Last Filed: 07/09/25 23:33> Initial Vital Signs Initial Vital Signs: Vital Signs Temperature 98.2 F 07/09/25 12:42 Pulse Rate 78 07/09/25 12:42 Respiratory Rate 16 07/09/25 12:42 Blood Pressure 139/76 07/09/25 12:42 Pulse Oximetry 98 07/09/25 12:42 Oxygen Delivery Method Room Air 07/09/25 12:42 Course <Abigail Dickinson PA-C - Last Filed: 07/09/25 19:12> Orders Ordered: ED Orders 07/09/25 13:49 EKG-12 Lead Stat Vital Signs Vital signs: Vital Signs - 8 hr 07/09/25 12:42 07/09/25 15:15 Temperature 98.2 F Pulse Rate 78 70 Respiratory Rate 16 18 Blood Pressure 139/76 109/63 Pulse Oximetry 98 97 Oxygen Delivery Method Room Air Room Air <DO Royer Pena Last Filed: 07/09/25 23:33> Orders Ordered: ED Orders 07/09/25 13:49 EKG-12 Lead Stat Vital Signs Vital signs: Vital Signs - 8 hr 07/09/25 12:42 07/09/25 15:15 Temperature 98.2 F Pulse Rate 78 70 Respiratory Rate 16 18 Blood Pressure 139/76 109/63 Pulse Oximetry 98 97 Oxygen Delivery Method Room Air Room Air MDM - SOB/Dyspnea <Abigail Dickinson PA-C - Last Filed: 07/09/25 19:12> [facility] Narrative Medical decision making narrative: 84-year-old female presents to the ED with a cough and chest pain for 1 week. Chest x-ray was without acute findings. Had a discussion with the patient regarding her chest pain and concern for cardiopulmonary etiology. Patient's opinion was that it was not her heart but it was due to the cough. Patient did consent to an EKG which showed sinus bradycardia at a heart rate of 58 beats per minute. No acute ST-T elevations. Patient declined any further cardiac workup. Patient also declined prescription for Tessalon Perles. Patient was given printouts of her EKG and chest x-ray. Recommend follow-up with PCP as soon as possible. ED return precautions discussed with patient. Patient verbalized understanding. Medical records reviewed: Yes Discharge Plan Departure Patient Disposition: Home Clinical Impression: Viral URI with cough Instructions: DI for Viral Upper Respiratory Infection -- Adult Activity Restrictions/Additional Instructions: You were evaluated in the emergency department today for a cough and a cold. Your EKG and chest x-ray were normal. It appears that you have a viral upper respiratory infection that is causing your symptoms. You may take [id number] cough and cold medicines. You may take Tylenol for pain or discomfort. Please follow-up with your PCP as soon as possible. Return to the ED if you have worsening symptoms, shortness of breath, chest pain. Prescriptions: No Action fluconazole [Diflucan] 150 mg tablet 150 mg PO ONCE Qty: 1 0RF Rx Instructions: as a single dose sulfamethoxazole-trimethoprim [Bactrim DS] 800-160 mg tablet 1 tab PO Q12H Qty: 14 0RF azelastine 137 mcg (0.1 %) aerosol,spray 1 spray intranasal BID Qty: 30 0RF Rx Instructions: administer into each nostril benzonatate 100 mg capsule 100 mg PO BID-TID PRN (Reason: cough) Qty: 14 0RF fluticasone propionate 50 mcg/actuation spray,suspension 2 spray NASAL DAILY PRN (Reason: nasal congestion, post nasal drips, ear pressure) Qty: 9.9 0RF Rx Instructions: administer into each nostril nitrofurantoin monohyd/m-cryst [Macrobid] 100 mg capsule 100 mg PO BID Qty: 10 0RF Rx Instructions: must administer with a meal/food nitrofurantoin macrocrystal 100 mg capsule 100 mg PO BID Qty: 14 0RF Rx Instructions: must administer with a meal/food phenazopyridine [Pyridium] 200 mg tablet 200 mg PO TID PRN (Reason: pain) Qty: 30 0RF Referrals: Christine Zeng DO [Primary Care Provider, Medical] Stand Alone Forms: Patient Portal/API ED Sign-out <Yahaira Reed DO - Last Filed: 07/09/25 23:33> Cosign ED Attending Maryamature Attestation: I was immediately available in the department for consultation.
== END 2025-07-09 15:15 | disposition home or self-care (01) ==
PROVIDERS: Emergency Provider Student in an Organized Health Care Education/Training Program; PCP Internal Medicine
DX: J06.9 Acute upper respiratory infection, unspecified (principal); R05.9 Cough, unspecified; R07.9 Chest pain, unspecified; R00.1 Bradycardia, unspecified
CPT/HCPCS: 93005; 93010; 99281; 99283